=== PATIENT | male | born 1950 | race Caucasian/White ===

== ENCOUNTER 2021-08-11 17:55 | Inpatient (IN) | payer MEDICARE, MEDICAID ==
[~2021-08-11] VITALS: Ht 170.2 cm; Wt 75.1 kg
[~2021-08-11 17:55] MED LIST: ADV50250 INH; ALBU18HF2 INH; ALBU90AE IN; COR3.125T PO; FENO160T37 PO; LISI40TA13 PO; NICO-731 TD; SPIR25TA PO
[2021-08-11 18:44] LABS: EOSINOPHILS % (AUTO) 0.1 % (0-6); HEMOGLOBIN 12.6 g/dl (14.0-17.9)
[2021-08-11 18:47] LABS: BASOPHILS % (AUTO) 0.3 % (0-1); HEMATOCRIT 37.9 % (42.0-52.0); LYMPHOCYTES # (AUTO) 0.8 X10'3 (1.1-4.8); LYMPHOCYTES % (AUTO) 8.1 % (21-51); MEAN CORPUSCULAR HEMOGLOBIN 32.1 PG (27.0-31.0); MEAN CORPUSCULAR HGB CONC 33.2 g/dL (33.0-36.5); MEAN CORPUSCULAR VOLUME 96.7 FL (78-98); MEAN PLATELET VOLUME 9.9 FL (7.4-10.4); MONOCYTES # (AUTO) 0.6 X10'3 (0-0.9); MONOCYTES % (AUTO) 6.3 % (2-12); NEUTROPHILS % (AUTO) 85.2 % (42-75); PLATELET COUNT 96 X10'3 (140-440); RED BLOOD COUNT 3.92 X10'6 (4.70-6.10); RED CELL DISTRIBUTION WIDTH 14.4 % (11.5-14.5); WHITE BLOOD COUNT 9.4 X10'3 (4.5-11.0)
[2021-08-11 18:54] LABS: ALANINE AMINOTRANSFERASE 518 U/L (12-78); ALBUMIN 2.6 G/DL (3.4-5.0); ALBUMIN/GLOBULIN RATIO 0.6 (1.1-1.5); ALKALINE PHOSPHATASE 163 IU/L (46-116); ANION GAP 13 (8-16); ASPARTATE AMINO TRANSFERASE 429 U/L (10-37); BILIRUBIN,TOTAL 1.1 MG/DL (0.1-1.0); BLOOD UREA NITROGEN 52 MG/DL (7-18); C-REACTIVE PROTEIN 11.73 MG/DL (0.0-0.5); CALCIUM 7.9 MG/DL (8.5-10.1); CHLORIDE 108 MMOL/L (99-107); CREATININE 1.21 MG/DL (0.60-1.10); D-DIMER 18.53 MG/L FEU (0-0.50); GLUCOSE 104 MG/DL (70-104); MAGNESIUM 1.9 MG/DL (1.5-2.4); POTASSIUM 4.4 MMOL/L (3.5-5.1); SODIUM 145 MMOL/L (135-145); TOTAL CARBON DIOXIDE 24.2 MMOL/L (24-32); TOTAL PROTEIN 7.3 G/DL (6.4-8.2); eGFR 59 ML/MIN
[2021-08-11] MEDS ORDERED: normal saline 1000ml 1,000 ML IV ONE (20:55)
[2021-08-11] MEDS ORDERED: morphine 2 MG/ML inj. syringe IV PRN ×2 (21:40)
[2021-08-11] MEDS ORDERED: mag hydrox/Alum hydrox/simeth 30ml oral suspension PO PRN (21:40)
[2021-08-11] MEDS ORDERED: ondansetron/PF 4mg/2ml inj IV PRN (21:40)
[2021-08-11] MEDS ORDERED: acetaminophen 325mg tablet PO PRN (21:40)
[2021-08-11] MEDS ORDERED: furosemide 10 MG/1 ML 10ml inj IV ONE (21:45)
--- NOTE | 2021-08-11 22:12 | NUR ---
RT NOTIFIED TO TRY PT ON HF NC. PT TOLERATING 10-11/L NRB WELL.
--- NOTE | 2021-08-11 23:17 | NUR ---
Placed on 12 LPM Salter high flow cannula. Unable to get SpO2 as Hands are cold. Reccommend nasal/ear probe and adjust flow prn. No apparent distress
--- NOTE | 2021-08-12 00:58 | NUR ---
PT WAS PLACED ON HF AND IS MOUTH BREATHING NOW; OXYGENATION HAS DECREASED DUE TO MOUTH BREATHING WHEN SLEEPING; PT STILL AT 90% ON HFNC.
[2021-08-12 02:41] LABS: NUCLEATED RED BLOOD CELLS 2 /100WBC (0-0); PLATELET ESTIMATE DECREASED; TOTAL CELLS COUNTED 100
[2021-08-12 02:46] LABS: LARGE PLATELETS FEW; POLYCHROMASIA FEW
[2021-08-12 04:45] LABS: HEMATOCRIT 39.2 % (42.0-52.0); HEMOGLOBIN 12.8 g/dl (14.0-17.9); LYMPHOCYTES # (AUTO) 0.7 X10'3 (1.1-4.8); MEAN CORPUSCULAR HGB CONC 32.7 g/dL (33.0-36.5); WHITE BLOOD COUNT 10.9 X10'3 (4.5-11.0)
[2021-08-12 04:46] LABS: BASOPHILS % (AUTO) 0.2 % (0-1); EOSINOPHILS # (AUTO) 0.1 X10'3 (0-0.9); EOSINOPHILS % (AUTO) 0.7 % (0-6); LYMPHOCYTES % (AUTO) 6.5 % (21-51); MEAN CORPUSCULAR HEMOGLOBIN 32.1 PG (27.0-31.0); MEAN CORPUSCULAR VOLUME 98.1 FL (78-98); MEAN PLATELET VOLUME 10.1 FL (7.4-10.4); MONOCYTES # (AUTO) 0.5 X10'3 (0-0.9); MONOCYTES % (AUTO) 4.3 % (2-12); NEUTROPHILS # (AUTO) 9.6 X10'3 (1.8-7.7); NEUTROPHILS % (AUTO) 88.3 % (42-75); PLATELET COUNT 99 X10'3 (140-440); RED CELL DISTRIBUTION WIDTH 14.5 % (11.5-14.5)
[2021-08-12 04:47] LABS: ALANINE AMINOTRANSFERASE 397 U/L (12-78); ALBUMIN 2.4 G/DL (3.4-5.0); ALBUMIN/GLOBULIN RATIO 0.5 (1.1-1.5); ALKALINE PHOSPHATASE 183 IU/L (46-116); ANION GAP 12 (8-16); ASPARTATE AMINO TRANSFERASE 238 U/L (10-37); BLOOD UREA NITROGEN 45 MG/DL (7-18); BUN/CREATININE RATIO 38.8 (5.4-32.0); CALCIUM 7.6 MG/DL (8.5-10.1); CHLORIDE 110 MMOL/L (99-107); CREATININE 1.16 MG/DL (0.60-1.10); POTASSIUM 3.7 MMOL/L (3.5-5.1); SODIUM 147 MMOL/L (135-145); TOTAL CARBON DIOXIDE 25.4 MMOL/L (24-32); TOTAL PROTEIN 6.8 G/DL (6.4-8.2); eGFR 62 ML/MIN
[2021-08-12 04:50] LABS: GLUCOSE 99 MG/DL (70-104)
--- NOTE | 2021-08-12 07:44 | NUR ---
PT OBSERVED TO BE AT 85% WHILE ON THE HIGH FLOW AND IS AWAKE/TALKING WITH STAFF. INCREASED HIGH FLOW TO 15 AND O2 IMPROVED TO 87%. SWITCHED PT TO NONREBREATHER AT 12L AND IS NOW 93%
[2021-08-12] MEDS ORDERED: dexamethasone inj 8 MG in normal saline 50ml IV soln 50 ML IV SCH (08:00)
[2021-08-12] MEDS ORDERED: dexamethasone sod phosphate 10mg/ml inj IV SCH (08:00)
[2021-08-12 08:20] LABS: TOTAL CELLS COUNTED 100
[2021-08-12 08:22] LABS: PLATELET ESTIMATE DECREASED
[2021-08-12 08:23] LABS: POLYCHROMASIA 1+
[2021-08-12 08:24] LABS: ELLIPTOCYTES FEW
--- NOTE | 2021-08-12 08:59 | NUR ---
CALLED DR CELIS REGARDING MULTIPLE DECADRON ORDERS. TOLD TO CANCEL THE BAG REPLACEMENT AND ONLY DO THE PUSH BID.
[2021-08-12] MEDS: enoxaparin 40mg/0.4ml syringe SUBCUT SCH (09:11)
[2021-08-12] MEDS: docusate sod 100mg capsule PO SCH ×2 (09:12→20:00)
[2021-08-12] MEDS ORDERED: potassium Cl 20 mEq SR tablet PO PRN ×2 (09:15)
[2021-08-12] MEDS ORDERED: potassium Cl 40MEQ/1/2NS 520ml 520 ML IV PRN (09:15)
[2021-08-12] MEDS ORDERED: magnesium Cl slow-release 64mg tablet PO PRN (09:15)
[2021-08-12] MEDS ORDERED: magnesium 4gm in 100ml NS 100 ML IV PRN (09:15)
[2021-08-12] MEDS ORDERED: CARV3.122 PO (14:50)
[2021-08-12 16:00] VITALS: BP 138/78
--- NOTE | 2021-08-12 18:39 | NUR ---
Problems reprioritized. Patient report given, questions answered & plan of care reviewed with Nevaeh CEE.
[2021-08-12] MEDS: ADVAIR IH SCH (20:00)
[2021-08-12] MEDS: K and/or MAG REPLACEMENT MC SCH (20:00)
[2021-08-12 20:59] VITALS: BP 137/83
[2021-08-12] MEDS: carVEDilol 3.125mg tablet PO SCH (21:01)
[2021-08-12] MEDS ORDERED: dexamethasone 4mg/ml inj IV ONE (21:20)
[2021-08-12 23:09] VITALS: BP 129/73
[2021-08-13 03:23] VITALS: BP 112/61
[2021-08-13 06:00] VITALS: BP 106/60
--- NOTE | 2021-08-13 06:46 | NUR ---
Problems reprioritized. Patient report given, questions answered & plan of care reviewed with JAYE Lee.
--- NOTE | 2021-08-13 07:02 | NUR ---
Patient in room PCU 3008. I have received report from Carla CEE and had the opportunity to ask questions and assume patient care.
[2021-08-13 07:29] LABS: BASOPHILS % (AUTO) 0 % (0-1); EOSINOPHILS % (AUTO) 0 % (0-6); HEMATOCRIT 39.1 % (42.0-52.0); HEMOGLOBIN 12.8 g/dl (14.0-17.9); LYMPHOCYTES # (AUTO) 0.5 X10'3 (1.1-4.8); LYMPHOCYTES % (AUTO) 6.3 % (21-51); MEAN CORPUSCULAR HEMOGLOBIN 32.2 PG (27.0-31.0); MEAN CORPUSCULAR HGB CONC 32.7 g/dL (33.0-36.5); MEAN CORPUSCULAR VOLUME 98.5 FL (78-98); MONOCYTES # (AUTO) 0.2 X10'3 (0-0.9); MONOCYTES % (AUTO) 2.5 % (2-12); NEUTROPHILS % (AUTO) 91.2 % (42-75); PLATELET COUNT 110 X10'3 (140-440); RED BLOOD COUNT 3.97 X10'6 (4.70-6.10); RED CELL DISTRIBUTION WIDTH 14.9 % (11.5-14.5); WHITE BLOOD COUNT 7.7 X10'3 (4.5-11.0)
[2021-08-13] MEDS: lisinopril 20mg tablet PO SCH (08:00)
[2021-08-13] MEDS: ADVAIR IH SCH ×2 (08:00→20:00)
[2021-08-13] MEDS: K and/or MAG REPLACEMENT MC SCH ×2 (08:00→20:00)
[2021-08-13 08:04] LABS: D-DIMER > 35.20 MG/L FEU (0-0.50)
[2021-08-13] MEDS ORDERED: FLU VACC QS2021-22(6MOS UP)/PF 60 MCG/0.5 ML SYRINGE IM ONE (09:00)
[2021-08-13 09:03] LABS: ALANINE AMINOTRANSFERASE 260 U/L (12-78); ALBUMIN 2.4 G/DL (3.4-5.0); ALBUMIN/GLOBULIN RATIO 0.5 (1.1-1.5); ALKALINE PHOSPHATASE 124 IU/L (46-116); ANION GAP 11 (8-16); ASPARTATE AMINO TRANSFERASE 78 U/L (10-37); BILIRUBIN,TOTAL 0.8 MG/DL (0.1-1.0); BLOOD UREA NITROGEN 39 MG/DL (7-18); BUN/CREATININE RATIO 48.8 (5.4-32.0); C-REACTIVE PROTEIN 5.33 MG/DL (0.0-0.5); CALCIUM 8.1 MG/DL (8.5-10.1); CHLORIDE 111 MMOL/L (99-107); GLUCOSE 157 MG/DL (70-104); LACTATE DEHYDROGENASE 430 U/L (85-227); MAGNESIUM 1.8 MG/DL (1.5-2.4); PHOSPHORUS 3.7 MG/DL (2.3-4.5); POTASSIUM 4.6 MMOL/L (3.5-5.1); SODIUM 148 MMOL/L (135-145); TOTAL CARBON DIOXIDE 26.4 MMOL/L (24-32); TOTAL PROTEIN 6.8 G/DL (6.4-8.2); eGFR > 90 ML/MIN
[2021-08-13] MEDS: dexamethasone 4mg/ml inj IV SCH ×2 (09:21→19:19)
[2021-08-13] MEDS: docusate sod 100mg capsule PO SCH ×2 (09:22→20:00)
[2021-08-13] MEDS: fenofibrate 145mg tablet PO SCH (09:22)
[2021-08-13] MEDS: carVEDilol 3.125mg tablet PO SCH ×3 (09:22→20:00)
[2021-08-13] MEDS: enoxaparin 40mg/0.4ml syringe SUBCUT SCH (09:24)
--- NOTE | 2021-08-13 10:01 | NUR ---
Paged to respiratory- Please change pt to NC, rebreather mask continues to fall and pt drops to 83-86%. fine wheezes noted. Thank you Rosa NGUYENU
[2021-08-13 10:03] LABS: HIV ANTIBODY 1&2 RAPID NON-REACTIVE (Neg)
[2021-08-13] MEDS: ALBUTEROL INHALER 1 PUFF/90 MCG INHALER IH PRN (10:39)
[2021-08-13 11:00] VITALS: BP 114/57
--- NOTE | 2021-08-13 15:00 | NUR ---
Pt doing very well with the HF NC at 15L. He is able to eat, speak and drink with minimal SOB. Stats at 94%. Finger oximeter removed. Using the vital machine oximeter. Pt stable.
--- NOTE | 2021-08-13 18:18 | NUR ---
Problems reprioritized. Patient report given, questions answered & plan of care reviewed with Liss CEE.
[2021-08-13] MEDS: acetaminophen 325mg tablet PO PRN (19:18)
[2021-08-13] MEDS: enoxaparin 80mg/0.8ml syringe SUBCUT SCH (19:19)
[2021-08-13 19:30] VITALS: BP 114/64
[2021-08-13 21:30] VITALS: BP 108/56
[2021-08-13 22:00] VITALS: BP 115/64
--- NOTE | 2021-08-13 22:10 | NUR ---
pt switched from NC 15L high flow to NRB b/c he got SOB. educated on adding NRB on top of NC instead of removing - sats 96% on NRB. replaced NC and sats remained 95%. pt requested lights off. call light in reach. pt has pulse ox at bedside he can put on as needed.
[2021-08-14 03:00] VITALS: BP 106/75
--- NOTE | 2021-08-14 03:27 | NUR ---
pt states he only wants ice chips, no water. he will drink the water as it melts.
--- NOTE | 2021-08-14 05:49 | NUR ---
reported to days. noted pt turning on side to help oxygenation. need to requests ETOH protocol and ensure
[2021-08-14 06:24] LABS: BASOPHILS % (AUTO) 0.4 % (0-1); EOSINOPHILS % (AUTO) 0 % (0-6); HEMATOCRIT 37.4 % (42.0-52.0); HEMOGLOBIN 12.5 g/dl (14.0-17.9); LYMPHOCYTES # (AUTO) 0.9 X10'3 (1.1-4.8); LYMPHOCYTES % (AUTO) 9.3 % (21-51); MEAN CORPUSCULAR HEMOGLOBIN 32.8 PG (27.0-31.0); MEAN CORPUSCULAR HGB CONC 33.5 g/dL (33.0-36.5); MEAN CORPUSCULAR VOLUME 97.9 FL (78-98); MEAN PLATELET VOLUME 10.3 FL (7.4-10.4); MONOCYTES # (AUTO) 0.5 X10'3 (0-0.9); MONOCYTES % (AUTO) 5.5 % (2-12); NEUTROPHILS # (AUTO) 8.2 X10'3 (1.8-7.7); NEUTROPHILS % (AUTO) 84.8 % (42-75); PLATELET COUNT 99 X10'3 (140-440); RED BLOOD COUNT 3.82 X10'6 (4.70-6.10); RED CELL DISTRIBUTION WIDTH 14.8 % (11.5-14.5); WHITE BLOOD COUNT 9.7 X10'3 (4.5-11.0)
[2021-08-14 07:02] LABS: ALANINE AMINOTRANSFERASE 165 U/L (12-78); ALBUMIN 2.3 G/DL (3.4-5.0); ALBUMIN/GLOBULIN RATIO 0.6 (1.1-1.5); ALKALINE PHOSPHATASE 104 IU/L (46-116); ANION GAP 3 (8-16); ASPARTATE AMINO TRANSFERASE 35 U/L (10-37); BILIRUBIN,TOTAL 0.7 MG/DL (0.1-1.0); BLOOD UREA NITROGEN 41 MG/DL (7-18); BUN/CREATININE RATIO 53.2 (5.4-32.0); C-REACTIVE PROTEIN 2.42 MG/DL (0.0-0.5); CALCIUM 8.4 MG/DL (8.5-10.1); CHLORIDE 107 MMOL/L (99-107); CREATININE 0.77 MG/DL (0.60-1.10); GLUCOSE 160 MG/DL (70-104); LACTATE DEHYDROGENASE 330 U/L (85-227); MAGNESIUM 1.8 MG/DL (1.5-2.4); PHOSPHORUS 3.1 MG/DL (2.3-4.5); SODIUM 140 MMOL/L (135-145); TOTAL CARBON DIOXIDE 29.6 MMOL/L (24-32); TOTAL PROTEIN 6.2 G/DL (6.4-8.2); eGFR > 90 ML/MIN
[2021-08-14 07:05] VITALS: BP 126/68
[2021-08-14] MEDS: ALBUTEROL INHALER 1 PUFF/90 MCG INHALER IH PRN (07:58)
[2021-08-14] MEDS: carVEDilol 3.125mg tablet PO SCH ×2 (08:00→20:00)
[2021-08-14] MEDS: ADVAIR IH SCH (08:00)
[2021-08-14] MEDS: lisinopril 20mg tablet PO SCH (08:00)
[2021-08-14] MEDS: K and/or MAG REPLACEMENT MC SCH ×2 (08:00→20:00)
--- NOTE | 2021-08-14 10:47 | NUR ---
Concern for low plt 99, lovanox 80mg BID ordered. Per Dr Andres villanueva to give.
[2021-08-14] MEDS: docusate sod 100mg capsule PO SCH ×2 (10:50→21:17)
[2021-08-14] MEDS: dexamethasone 4mg/ml inj IV SCH ×2 (10:51→21:18)
[2021-08-14] MEDS: fenofibrate 145mg tablet PO SCH (10:51)
[2021-08-14] MEDS: enoxaparin 80mg/0.8ml syringe SUBCUT SCH (10:51)
[2021-08-14 10:58] VITALS: BP 99/60
[2021-08-14 11:18] LABS: HBSAG SCREEN Negative (Negative); HEP A AB, IGM Negative (Negative); HEPATITIS C ANTIBODY 0.1 s/co ratio (0.0-0.9)
--- NOTE | 2021-08-14 12:53 | NUR ---
PAGER ID: [phone] MESSAGE: Evelin [phone] wally Darius Garcia- can we switch his home med Advair to budesonide/albuterol nebs? Lungs sounds very coarse, wheezy. will also work on pulmonary toilet w IS, flutter.
--- NOTE | 2021-08-14 13:32 | NUR ---
instructed pt on use of IS. He is weak and unable to pull up to more than 1000. Encouraged deep breathe/cough. Has weak cough. Administered albuterol with spacer. I have paged MD Garcia re changing the Advair, which is unavailable home med, to budesonide/albuterol nebs (pharmacological equivalent per pharmacy). the pt is no longer in isolation and is now able to receive neb treatment Addendum: 08/14/21 at 1357 by Lluvia Torres RN spoke to Dr Garcia and he has adjusted the meds to address the low platelets/anticoagulation issue and also ordered scheduled RT and duonebs.
[2021-08-14] MEDS: ipratropium/albuterol 3ml nebule NEB SCH ×3 (15:00→23:21)
[2021-08-14] MEDS: ipratropium/albuterol 3ml nebule NEB PRN (17:49)
[2021-08-14 18:00] VITALS: BP 126/68
[2021-08-14] MEDS: apixaban 5mg tablet PO SCH (21:17)
[2021-08-14] MEDS: acetaminophen 325mg tablet PO PRN (21:18)
[2021-08-14 22:00] VITALS: BP 113/51
[2021-08-15 02:00] VITALS: BP 119/56
[2021-08-15] MEDS: ipratropium/albuterol 3ml nebule NEB SCH ×6 (03:23→23:18)
--- NOTE | 2021-08-15 05:50 | NUR ---
reported to days. encouraged pt to lay on side, continue coughing and using RT tx.
[2021-08-15 06:00] VITALS: BP 138/90
--- NOTE | 2021-08-15 06:15 | NUR ---
Patient in room PCU 3013. I have received report from Randy CEE and had the opportunity to ask questions and assume patient care.
[2021-08-15 06:32] LABS: BASOPHILS % (AUTO) 0 % (0-1); EOSINOPHILS % (AUTO) 0 % (0-6); HEMATOCRIT 37.9 % (42.0-52.0); HEMOGLOBIN 12.8 g/dl (14.0-17.9); LYMPHOCYTES # (AUTO) 0.7 X10'3 (1.1-4.8); LYMPHOCYTES % (AUTO) 6.3 % (21-51); MEAN CORPUSCULAR HEMOGLOBIN 32.6 PG (27.0-31.0); MEAN CORPUSCULAR HGB CONC 33.9 g/dL (33.0-36.5); MEAN CORPUSCULAR VOLUME 96.2 FL (78-98); MEAN PLATELET VOLUME 9.8 FL (7.4-10.4); MONOCYTES # (AUTO) 0.5 X10'3 (0-0.9); MONOCYTES % (AUTO) 4.6 % (2-12); NEUTROPHILS # (AUTO) 9.4 X10'3 (1.8-7.7); NEUTROPHILS % (AUTO) 89.1 % (42-75); PLATELET COUNT 106 X10'3 (140-440); RED BLOOD COUNT 3.94 X10'6 (4.70-6.10); RED CELL DISTRIBUTION WIDTH 14.2 % (11.5-14.5); WHITE BLOOD COUNT 10.6 X10'3 (4.5-11.0)
[2021-08-15 06:47] LABS: D-DIMER 6.34 MG/L FEU (0-0.50)
[2021-08-15 07:02] LABS: ALANINE AMINOTRANSFERASE 118 U/L (12-78); ALBUMIN 2.3 G/DL (3.4-5.0); ALBUMIN/GLOBULIN RATIO 0.6 (1.1-1.5); ALKALINE PHOSPHATASE 95 IU/L (46-116); ANION GAP 1 (8-16); ASPARTATE AMINO TRANSFERASE 27 U/L (10-37); BILIRUBIN,TOTAL 0.7 MG/DL (0.1-1.0); BLOOD UREA NITROGEN 37 MG/DL (7-18); BUN/CREATININE RATIO 48.1 (5.4-32.0); CALCIUM 8.4 MG/DL (8.5-10.1); CHLORIDE 105 MMOL/L (99-107); CREATININE 0.77 MG/DL (0.60-1.10); GLUCOSE 129 MG/DL (70-104); SODIUM 138 MMOL/L (135-145); TOTAL CARBON DIOXIDE 31.8 MMOL/L (24-32); TOTAL PROTEIN 6.1 G/DL (6.4-8.2); eGFR > 90 ML/MIN
[2021-08-15 07:05] LABS: C-REACTIVE PROTEIN 1.17 MG/DL (0.0-0.5); LACTATE DEHYDROGENASE 321 U/L (85-227); MAGNESIUM 1.6 MG/DL (1.5-2.4); PHOSPHORUS 2.7 MG/DL (2.3-4.5)
[2021-08-15] MEDS: lactose-reduced food (Ensure High Protein) 237ml bottle PO SCH ×3 (08:00→18:00)
[2021-08-15] MEDS: carVEDilol 3.125mg tablet PO SCH (08:00)
[2021-08-15] MEDS: K and/or MAG REPLACEMENT MC SCH ×2 (08:00→20:00)
[2021-08-15] MEDS: lisinopril 20mg tablet PO SCH (08:52)
[2021-08-15] MEDS: docusate sod 100mg capsule PO SCH ×2 (08:53→21:13)
[2021-08-15] MEDS: fenofibrate 145mg tablet PO SCH (08:53)
[2021-08-15] MEDS: dexamethasone 4mg/ml inj IV SCH ×2 (08:54→21:13)
[2021-08-15] MEDS: apixaban 5mg tablet PO SCH ×2 (08:54→21:14)
--- NOTE | 2021-08-15 10:34 | NUR ---
Spoke with Dr. Garcia concerning Pt's HR in the 50's and morning dose of Coreg 3.125. Orders received from Dr. Garcia to hold Coreg 3.125 dose for 3 days and then restart on 06/18/21 at 0800
--- NOTE | 2021-08-15 14:55 | NUR ---
pt refused 1500 svn stating that he wants to sleep. pt. appears comfortable and without sob
[2021-08-15 15:00] VITALS: BP 134/69
[2021-08-15 18:00] VITALS: BP 138/69
--- NOTE | 2021-08-15 18:10 | NUR ---
Problems reprioritized. Patient report given, questions answered & plan of care reviewed with Marleni CEE.
[2021-08-15 22:00] VITALS: BP 124/80
[2021-08-16 02:00] VITALS: BP 132/81
[2021-08-16] MEDS: ipratropium/albuterol 3ml nebule NEB SCH ×6 (03:18→23:01)
[2021-08-16 06:04] LABS: D-DIMER 3.94 MG/L FEU (0-0.50)
[2021-08-16 06:06] LABS: ALANINE AMINOTRANSFERASE 89 U/L (12-78); ALBUMIN 2.4 G/DL (3.4-5.0); ALBUMIN/GLOBULIN RATIO 0.7 (1.1-1.5); ALKALINE PHOSPHATASE 86 IU/L (46-116); ANION GAP 3 (8-16); ASPARTATE AMINO TRANSFERASE 27 U/L (10-37); BILIRUBIN,TOTAL 0.7 MG/DL (0.1-1.0); BLOOD UREA NITROGEN 41 MG/DL (7-18); BUN/CREATININE RATIO 64.1 (5.4-32.0); C-REACTIVE PROTEIN 0.71 MG/DL (0.0-0.5); CALCIUM 8.4 MG/DL (8.5-10.1); CHLORIDE 102 MMOL/L (99-107); CREATININE 0.64 MG/DL (0.60-1.10); GLUCOSE 122 MG/DL (70-104); LACTATE DEHYDROGENASE 290 U/L (85-227); MAGNESIUM 1.6 MG/DL (1.5-2.4); POTASSIUM 5.1 MMOL/L (3.5-5.1); SODIUM 139 MMOL/L (135-145); TOTAL CARBON DIOXIDE 33.9 MMOL/L (24-32); eGFR > 90 ML/MIN
--- NOTE | 2021-08-16 06:10 | NUR ---
Patient in room PCU 3013. I have received report from Marleni CEE and had the opportunity to ask questions and assume patient care.
[2021-08-16 06:16] LABS: BASOPHILS % (AUTO) 0.1 % (0-1); EOSINOPHILS % (AUTO) 0 % (0-6); HEMATOCRIT 40.6 % (42.0-52.0); HEMOGLOBIN 13.4 g/dl (14.0-17.9); LYMPHOCYTES # (AUTO) 0.7 X10'3 (1.1-4.8); MEAN CORPUSCULAR HGB CONC 33.1 g/dL (33.0-36.5); MEAN CORPUSCULAR VOLUME 96.8 FL (78-98); MEAN PLATELET VOLUME 10.5 FL (7.4-10.4); MONOCYTES # (AUTO) 0.7 X10'3 (0-0.9); MONOCYTES % (AUTO) 5.1 % (2-12); NEUTROPHILS # (AUTO) 12.2 X10'3 (1.8-7.7); NEUTROPHILS % (AUTO) 89.8 % (42-75); PLATELET COUNT 117 X10'3 (140-440); RED CELL DISTRIBUTION WIDTH 14.8 % (11.5-14.5); WHITE BLOOD COUNT 13.6 X10'3 (4.5-11.0)
[2021-08-16 07:00] VITALS: BP 168/63
[2021-08-16] MEDS ORDERED: FLU VACC QS2021-22(6MOS UP)/PF 60 MCG/0.5 ML SYRINGE IM ONE (08:00)
[2021-08-16] MEDS: K and/or MAG REPLACEMENT MC SCH ×2 (08:00→19:11)
[2021-08-16] MEDS: lactose-reduced food (Ensure High Protein) 237ml bottle PO SCH ×3 (08:00→18:00)
[2021-08-16] MEDS: docusate sod 100mg capsule PO SCH ×2 (09:12→20:32)
[2021-08-16] MEDS: lisinopril 20mg tablet PO SCH (09:12)
[2021-08-16] MEDS: fenofibrate 145mg tablet PO SCH (09:12)
[2021-08-16] MEDS: dexamethasone 4mg/ml inj IV SCH ×2 (09:13→20:29)
[2021-08-16] MEDS: apixaban 5mg tablet PO SCH ×2 (09:13→20:32)
--- NOTE | 2021-08-16 10:51 | NUR ---
Initial: Pt diagnosed with COVID pneumonia around 07/23 admit for acute hypoxemic respiratory failure. Currently on a heart healthy diet with average 50-75% PO intake. Noted pt appropriately started on Ensure High Protein TID 08/15 with average 58% PO intake of ONS. Combined PO intake of meals and ONS is meeting roughly 78-100% estimated energy needs and 90-100% estimated protein needs. LBM 08/12, receiving routine bowel care. No additional nutrition intervention implemented at this time. Will continue to follow. Recommendations: 1) Advance to regular diet 2) Continue Ensure High Protein TIDWM 3) Routine bowel care 4) Daily scaled weights per rx Addendum: 08/16/21 at [address] Amended: Links added.
[2021-08-16 11:00] VITALS: BP 124/71
[2021-08-16 11:43] LABS: ANISOCYTOSIS 1+; LARGE PLATELETS FEW; PLATELET ESTIMATE DECREASED
[2021-08-16] MEDS: magnesium hydroxide 30ml (MOM) UD suspension PO PRN (12:05)
[2021-08-16 15:00] VITALS: BP 127/67
[2021-08-16 18:00] VITALS: BP 114/60
--- NOTE | 2021-08-16 18:05 | NUR ---
Problems reprioritized. Patient report given, questions answered & plan of care reviewed with Marleni CEE.
[2021-08-16 22:00] VITALS: BP 123/71
[2021-08-17 02:00] VITALS: BP 109/60
[2021-08-17] MEDS: ipratropium/albuterol 3ml nebule NEB SCH ×6 (03:07→23:10)
[2021-08-17 06:14] LABS: BASOPHILS % (AUTO) 0 % (0-1); EOSINOPHILS % (AUTO) 0.1 % (0-6); HEMATOCRIT 35.9 % (42.0-52.0); LYMPHOCYTES # (AUTO) 0.7 X10'3 (1.1-4.8); MEAN CORPUSCULAR HEMOGLOBIN 32.2 PG (27.0-31.0); MEAN CORPUSCULAR HGB CONC 33.5 g/dL (33.0-36.5); MEAN PLATELET VOLUME 10.6 FL (7.4-10.4); MONOCYTES # (AUTO) 0.8 X10'3 (0-0.9); MONOCYTES % (AUTO) 7.2 % (2-12); NEUTROPHILS # (AUTO) 9.7 X10'3 (1.8-7.7); NEUTROPHILS % (AUTO) 86.7 % (42-75); PLATELET COUNT 104 X10'3 (140-440); RED BLOOD COUNT 3.74 X10'6 (4.70-6.10); RED CELL DISTRIBUTION WIDTH 14.5 % (11.5-14.5); WHITE BLOOD COUNT 11.2 X10'3 (4.5-11.0)
[2021-08-17 06:18] LABS: D-DIMER 3.76 MG/L FEU (0-0.50)
[2021-08-17 06:37] LABS: ALANINE AMINOTRANSFERASE 61 U/L (12-78); ALBUMIN 2.3 G/DL (3.4-5.0); ALBUMIN/GLOBULIN RATIO 0.7 (1.1-1.5); ALKALINE PHOSPHATASE 75 IU/L (46-116); ANION GAP 0 (8-16); ASPARTATE AMINO TRANSFERASE 26 U/L (10-37); BILIRUBIN,TOTAL 0.6 MG/DL (0.1-1.0); BLOOD UREA NITROGEN 44 MG/DL (7-18); BUN/CREATININE RATIO 69.8 (5.4-32.0); C-REACTIVE PROTEIN 0.62 MG/DL (0.0-0.5); CALCIUM 8.3 MG/DL (8.5-10.1); CHLORIDE 101 MMOL/L (99-107); CREATININE 0.63 MG/DL (0.60-1.10); GLUCOSE 147 MG/DL (70-104); LACTATE DEHYDROGENASE 245 U/L (85-227); MAGNESIUM 1.9 MG/DL (1.5-2.4); PHOSPHORUS 3.2 MG/DL (2.3-4.5); SODIUM 137 MMOL/L (135-145); TOTAL CARBON DIOXIDE 35.9 MMOL/L (24-32); TOTAL PROTEIN 5.6 G/DL (6.4-8.2); eGFR > 90 ML/MIN
[2021-08-17 07:00] VITALS: BP 96/52
[2021-08-17 07:18] LABS: LARGE PLATELETS FEW; PLATELET ESTIMATE DECREASED
[2021-08-17] MEDS: K and/or MAG REPLACEMENT MC SCH ×2 (07:59→20:00)
[2021-08-17] MEDS: lactose-reduced food (Ensure High Protein) 237ml bottle PO SCH ×3 (08:00→18:00)
[2021-08-17] MEDS: lisinopril 20mg tablet PO SCH (08:00)
[2021-08-17] MEDS: fenofibrate 145mg tablet PO SCH (08:49)
[2021-08-17] MEDS: docusate sod 100mg capsule PO SCH ×2 (08:50→21:06)
[2021-08-17] MEDS: apixaban 5mg tablet PO SCH ×2 (08:50→21:07)
[2021-08-17] MEDS: dexamethasone 4mg/ml inj IV SCH ×2 (08:50→21:07)
--- NOTE | 2021-08-17 09:00 | NUR ---
PAGER ID: [phone] MESSAGE: REN ON [email or web address], [phone] NOT DOING WELL, O2 DEMAND INCREASING, CAN I PLACE ORDER FOR STAT CXRAY AND ABG?
[2021-08-17] MEDS: HYDROcodone/acetaminophen 5mg/325mg tablet PO PRN ×2 (09:24→17:42)
[2021-08-17 11:00] VITALS: BP 108/57
[2021-08-17 11:12] LABS: ABG BASE EXCESS 9.4 mmol/L (-2.0-2.0); ABG HCO3 34.6 mmol/L (22.0-26.0); ABG OXYGEN SATURATION 93.6 % (94-97); ABG PCO2 (T) 49.2 mmHg (35.0-48.0); ABG PO2 (T) 67.4 mmHg (75.0-100.0); ALLEN'S TEST POSITIVE; FCOHb 0.6 % (0.0-3.9); FLOW 15 L/min; FMetHb 0.3 % (0.0-1.5); FO2Hb 92.8 % (94-97)
[2021-08-17 11:30] VITALS: BP 108/57
[2021-08-17 18:00] VITALS: BP 97/53
[2021-08-17 23:00] VITALS: BP 111/54
[2021-08-18] MEDS: ipratropium/albuterol 3ml nebule NEB SCH ×6 (02:56→23:21)
[2021-08-18 06:00] VITALS: BP 102/58
[2021-08-18 06:31] LABS: BASOPHILS % (AUTO) 0.2 % (0-1); EOSINOPHILS % (AUTO) 0.1 % (0-6); HEMATOCRIT 34.3 % (42.0-52.0); HEMOGLOBIN 11.3 g/dl (14.0-17.9); LYMPHOCYTES # (AUTO) 0.7 X10'3 (1.1-4.8); MEAN CORPUSCULAR HEMOGLOBIN 32.4 PG (27.0-31.0); MEAN CORPUSCULAR HGB CONC 32.9 g/dL (33.0-36.5); MEAN CORPUSCULAR VOLUME 98.6 FL (78-98); MEAN PLATELET VOLUME 10.7 FL (7.4-10.4); MONOCYTES # (AUTO) 0.7 X10'3 (0-0.9); MONOCYTES % (AUTO) 4.7 % (2-12); NEUTROPHILS # (AUTO) 13.3 X10'3 (1.8-7.7); PLATELET COUNT 115 X10'3 (140-440); RED BLOOD COUNT 3.48 X10'6 (4.70-6.10); RED CELL DISTRIBUTION WIDTH 15.3 % (11.5-14.5); WHITE BLOOD COUNT 14.8 X10'3 (4.5-11.0)
[2021-08-18 07:18] LABS: ALANINE AMINOTRANSFERASE 44 U/L (12-78); ALBUMIN 2.2 G/DL (3.4-5.0); ALBUMIN/GLOBULIN RATIO 0.7 (1.1-1.5); ALKALINE PHOSPHATASE 66 IU/L (46-116); ANION GAP 1 (8-16); ASPARTATE AMINO TRANSFERASE 25 U/L (10-37); BILIRUBIN,TOTAL 0.5 MG/DL (0.1-1.0); BLOOD UREA NITROGEN 56 MG/DL (7-18); BUN/CREATININE RATIO 82.4 (5.4-32.0); CALCIUM 8.4 MG/DL (8.5-10.1); CHLORIDE 99 MMOL/L (99-107); CREATININE 0.68 MG/DL (0.60-1.10); GLUCOSE 116 MG/DL (70-104); POTASSIUM 5.3 MMOL/L (3.5-5.1); SODIUM 134 MMOL/L (135-145); TOTAL CARBON DIOXIDE 33.6 MMOL/L (24-32); TOTAL PROTEIN 5.4 G/DL (6.4-8.2); eGFR > 90 ML/MIN
[2021-08-18] MEDS: lactose-reduced food (Ensure High Protein) 237ml bottle PO SCH ×3 (08:35→18:00)
[2021-08-18] MEDS: dexamethasone 4mg/ml inj IV SCH (08:46)
[2021-08-18] MEDS: apixaban 5mg tablet PO SCH ×2 (08:46→19:57)
[2021-08-18] MEDS: docusate sod 100mg capsule PO SCH ×2 (08:47→19:58)
[2021-08-18] MEDS: carVEDilol 3.125mg tablet PO SCH ×2 (08:47→19:54)
[2021-08-18] MEDS: lisinopril 20mg tablet PO SCH (08:47)
[2021-08-18] MEDS: fenofibrate 145mg tablet PO SCH (08:47)
[2021-08-18] MEDS: K and/or MAG REPLACEMENT MC SCH ×2 (08:51→19:40)
[2021-08-18 11:00] VITALS: BP 100/60
[2021-08-18 15:00] VITALS: BP 99/60
[2021-08-18] MEDS: acetaminophen 325mg tablet PO PRN (15:43)
[2021-08-18 18:00] VITALS: BP 94/41
--- NOTE | 2021-08-18 18:48 | NUR ---
Problems reprioritized. Patient report given, questions answered & plan of care reviewed with Marleni CEE.
--- NOTE | 2021-08-18 18:48 | NUR ---
report received from nurse Roberts. Patient is stable. All safety measures in place. Will continue monitor.
--- NOTE | 2021-08-18 19:55 | NUR ---
coreg held bp 73/31. sat 96 on High flow
[2021-08-18] MEDS: HYDROcodone/acetaminophen 5mg/325mg tablet PO PRN (19:57)
[2021-08-18] MEDS ORDERED: dexamethasone 4mg/ml inj IV SCH (20:00)
--- NOTE | 2021-08-18 20:03 | NUR ---
patient resting in bed watching tv. reports neck pain of 5 on a scale of 0-10. Pain med given. encourage pain to reposition. All safety in place. will continue monitor.
[2021-08-18] MEDS: dexamethasone inj 4 MG in normal saline 50ml IV soln 50 ML IV SCH (21:26)
[2021-08-18 22:00] VITALS: BP 91/44
[2021-08-19] VITALS (8 sets, daily range): BP systolic 75–92; BP diastolic 41–60
--- NOTE | 2021-08-19 01:21 | NUR ---
HOSPITALIST PAGED ABOUT PATIENT LOW BP. ORDERS GIVEN: 250 ML BOLUS AND 100ML/HR NS
[2021-08-19] MEDS: normal saline 1000ml 1,000 ML IV SCH ×2 (01:25→11:54)
[2021-08-19] MEDS ORDERED: normal saline 250ml IV soln 250 ML IV ONE (01:25)
[2021-08-19] MEDS: ipratropium/albuterol 3ml nebule NEB SCH ×6 (03:15→22:38)
[2021-08-19 06:14] LABS: BASOPHILS % (AUTO) 0 % (0-1); EOSINOPHILS % (AUTO) 0.1 % (0-6); HEMATOCRIT 32.6 % (42.0-52.0); HEMOGLOBIN 10.6 g/dl (14.0-17.9); LYMPHOCYTES # (AUTO) 0.6 X10'3 (1.1-4.8); LYMPHOCYTES % (AUTO) 4.1 % (21-51); MEAN CORPUSCULAR HEMOGLOBIN 32.2 PG (27.0-31.0); MEAN CORPUSCULAR HGB CONC 32.5 g/dL (33.0-36.5); MONOCYTES # (AUTO) 0.6 X10'3 (0-0.9); MONOCYTES % (AUTO) 4.3 % (2-12); NEUTROPHILS # (AUTO) 13.5 X10'3 (1.8-7.7); NEUTROPHILS % (AUTO) 91.5 % (42-75); PLATELET COUNT 113 X10'3 (140-440); RED BLOOD COUNT 3.29 X10'6 (4.70-6.10); RED CELL DISTRIBUTION WIDTH 15.3 % (11.5-14.5); WHITE BLOOD COUNT 14.8 X10'3 (4.5-11.0)
--- NOTE | 2021-08-19 06:15 | NUR ---
Patient in room PCU 3013. I have received report from Marleni CEE and had the opportunity to ask questions and assume patient care.
[2021-08-19 06:19] LABS: D-DIMER 2.22 MG/L FEU (0-0.50)
[2021-08-19 06:46] LABS: ALANINE AMINOTRANSFERASE 36 U/L (12-78); ALBUMIN/GLOBULIN RATIO 0.6 (1.1-1.5); ALKALINE PHOSPHATASE 62 IU/L (46-116); ANION GAP 0 (8-16); ASPARTATE AMINO TRANSFERASE 21 U/L (10-37); BILIRUBIN,TOTAL 0.4 MG/DL (0.1-1.0); BLOOD UREA NITROGEN 49 MG/DL (7-18); BUN/CREATININE RATIO 76.6 (5.4-32.0); C-REACTIVE PROTEIN 0.25 MG/DL (0.0-0.5); CHLORIDE 101 MMOL/L (99-107); CREATININE 0.64 MG/DL (0.60-1.10); GLUCOSE 113 MG/DL (70-104); LACTATE DEHYDROGENASE 187 U/L (85-227); MAGNESIUM 1.8 MG/DL (1.5-2.4); PHOSPHORUS 3.5 MG/DL (2.3-4.5); POTASSIUM 5.5 MMOL/L (3.5-5.1); SODIUM 136 MMOL/L (135-145); TOTAL CARBON DIOXIDE 34.9 MMOL/L (24-32); TOTAL PROTEIN 5.2 G/DL (6.4-8.2); eGFR > 90 ML/MIN
[2021-08-19 07:37] LABS: PLATELET ESTIMATE DECREASED
[2021-08-19 07:38] LABS: HYPOCHROMASIA 1+; LARGE PLATELETS FEW
[2021-08-19] MEDS: dexamethasone inj 4 MG in normal saline 50ml IV soln 50 ML IV SCH ×2 (07:56→20:15)
[2021-08-19] MEDS: docusate sod 100mg capsule PO SCH ×2 (07:57→20:21)
[2021-08-19] MEDS: fenofibrate 145mg tablet PO SCH (07:57)
[2021-08-19] MEDS: apixaban 5mg tablet PO SCH ×2 (07:57→20:22)
[2021-08-19] MEDS: HYDROcodone/acetaminophen 5mg/325mg tablet PO PRN ×2 (07:58→22:00)
[2021-08-19] MEDS: lactose-reduced food (Ensure High Protein) 237ml bottle PO SCH ×3 (07:58→18:12)
[2021-08-19] MEDS: carVEDilol 3.125mg tablet PO SCH ×2 (07:59→20:00)
[2021-08-19] MEDS: lisinopril 20mg tablet PO SCH (08:00)
[2021-08-19] MEDS: K and/or MAG REPLACEMENT MC SCH ×2 (08:05→20:00)
--- NOTE | 2021-08-19 10:53 | NUR ---
spoke with Dr. Garcia regarding hypotension. I held blood pressure medications. He requested to give a 500 normal saline bolus, change IV Normal saline to 75ml an hour, and continue to hold blood pressure medication today.
[2021-08-19] MEDS: normal saline 500ml IV soln 500 ML IV SCH ×2 (11:22→14:03)
--- NOTE | 2021-08-19 18:09 | NUR ---
Problems reprioritized. Patient report given, questions answered & plan of care reviewed with Marleni CEE.
[2021-08-19] MEDS: magnesium hydroxide 30ml (MOM) UD suspension PO PRN (20:22)
[2021-08-19] MEDS ORDERED: sodium polystyrene sulfonate 15gm/60ml oral suspension PO ONE (23:10)
[2021-08-20] VITALS (8 sets, daily range): BP systolic 90–131; BP diastolic 41–56
[2021-08-20] MEDS: normal saline 1000ml 1,000 ML IV SCH ×2 (00:55→14:38)
--- NOTE | 2021-08-20 00:55 | NUR ---
HOSPITALIST CALLED ABOUT PATIENT CONTINUOUS DECREASE BP DESPITE IVF. ATTEMPTED TO REQUEST ORDER FOR MIDODRINE. SAY NO TO ORDERING MIDODRINE SINCE PATIENT HAS NOT BEEN ON MED BEFORE. HE WANTS US TO CONTINUE IVF ORDERED, CONTINUE MONITOR PATIENT AND CALL HIM IF THERE'S ANY CHANGE.
--- NOTE | 2021-08-20 03:00 | NUR ---
patient has continuous IV fluid to maintain BP. last BP 100/55. patient IV infitrated several unsuccessful attempts by several nurses. Patient needs new IV . Page sent out PICC line nurse. I will inform .
[2021-08-20] MEDS: ipratropium/albuterol 3ml nebule NEB SCH ×6 (03:02→23:32)
--- NOTE | 2021-08-20 05:35 | NUR ---
Patient resting in bed in no apparent distress. patient IV is not working. The charge nurse, another nurse and all unsuccessfully attempted to get an IV access. Patient clean and dry . linens changed. Instruct patient to call for help as needed. All safety measures in place. Will continue to monitor.
[2021-08-20] MEDS: K and/or MAG REPLACEMENT MC SCH ×2 (08:00→19:56)
[2021-08-20] MEDS: lisinopril 20mg tablet PO SCH (08:00)
[2021-08-20] MEDS: carVEDilol 3.125mg tablet PO SCH ×2 (08:00→19:22)
[2021-08-20 08:23] LABS: BASOPHILS % (AUTO) 0.1 % (0-1); EOSINOPHILS % (AUTO) 0.2 % (0-6); HEMATOCRIT 29.9 % (42.0-52.0); HEMOGLOBIN 9.8 g/dl (14.0-17.9); LYMPHOCYTES # (AUTO) 0.7 X10'3 (1.1-4.8); LYMPHOCYTES % (AUTO) 5.9 % (21-51); MEAN CORPUSCULAR HEMOGLOBIN 32.6 PG (27.0-31.0); MEAN CORPUSCULAR HGB CONC 32.9 g/dL (33.0-36.5); MEAN PLATELET VOLUME 10.9 FL (7.4-10.4); MONOCYTES # (AUTO) 0.8 X10'3 (0-0.9); MONOCYTES % (AUTO) 6.9 % (2-12); NEUTROPHILS # (AUTO) 10.6 X10'3 (1.8-7.7); NEUTROPHILS % (AUTO) 86.9 % (42-75); PLATELET COUNT 124 X10'3 (140-440); RED BLOOD COUNT 3.02 X10'6 (4.70-6.10); RED CELL DISTRIBUTION WIDTH 15.8 % (11.5-14.5); WHITE BLOOD COUNT 12.2 X10'3 (4.5-11.0)
[2021-08-20 08:25] LABS: D-DIMER 1.97 MG/L FEU (0-0.50)
[2021-08-20] MEDS: apixaban 5mg tablet PO SCH ×2 (08:45→19:22)
[2021-08-20] MEDS: lactose-reduced food (Ensure High Protein) 237ml bottle PO SCH ×3 (08:45→18:00)
[2021-08-20] MEDS: fenofibrate 145mg tablet PO SCH (08:45)
[2021-08-20] MEDS: docusate sod 100mg capsule PO SCH ×2 (08:45→19:21)
[2021-08-20 08:47] LABS: ALANINE AMINOTRANSFERASE 29 U/L (12-78); ALBUMIN/GLOBULIN RATIO 0.7 (1.1-1.5); ALKALINE PHOSPHATASE 54 IU/L (46-116); ANION GAP 1 (8-16); ASPARTATE AMINO TRANSFERASE 22 U/L (10-37); BILIRUBIN,TOTAL 0.3 MG/DL (0.1-1.0); BLOOD UREA NITROGEN 39 MG/DL (7-18); BUN/CREATININE RATIO 70.9 (5.4-32.0); C-REACTIVE PROTEIN 0.19 MG/DL (0.0-0.5); CALCIUM 7.8 MG/DL (8.5-10.1); CHLORIDE 101 MMOL/L (99-107); CREATININE 0.55 MG/DL (0.60-1.10); GLUCOSE 95 MG/DL (70-104); LACTATE DEHYDROGENASE 217 U/L (85-227); MAGNESIUM 1.4 MG/DL (1.5-2.4); PHOSPHORUS 2.5 MG/DL (2.3-4.5); POTASSIUM 5.3 MMOL/L (3.5-5.1); SODIUM 138 MMOL/L (135-145); TOTAL CARBON DIOXIDE 35.9 MMOL/L (24-32); TOTAL PROTEIN 4.9 G/DL (6.4-8.2); eGFR > 90 ML/MIN
[2021-08-20] MEDS: dexamethasone inj 4 MG in normal saline 50ml IV soln 50 ML IV SCH (09:20)
[2021-08-20] MEDS: HYDROcodone/acetaminophen 5mg/325mg tablet PO PRN (09:23)
--- NOTE | 2021-08-20 09:56 | NUR ---
Reassessment: Pt continues eating well and appears to be improving with mostly 75% PO intake since last RD assessment 08/16, up to 75-100% PO intake at two most recent meals. PO intake of Ensure High Protein TID slightly fluctuates with average 75%, up to 100% PO intake of three most recent ONS. Pt meeting estimated nutrient needs at this time with combined PO intake of meals and ONS. LBM 08/19, receiving routine bowel care. No further nutrition intervention warranted at this time. Will continue to follow. Recommendations: 1) Advance to regular diet 2) Continue Ensure High Protein TIDWM 3) Routine bowel care 4) Daily scaled weights per rx Addendum: 08/20/21 at [address] Amended: Links added.
[2021-08-20 10:31] LABS: HYPOCHROMASIA 1+; LARGE PLATELETS FEW; PLATELET ESTIMATE DECREASED
--- NOTE | 2021-08-20 15:18 | NUR ---
Paged Dr. Garcia PAGER ID: [phone] MESSAGE: PCU [id number] Darius Garcia, Mag level is 1.4. could you put in the Magnesium replacement set please. Alejandra CEE [phone]
[2021-08-20] MEDS ORDERED: potassium Cl 40MEQ/1/2NS 520ml 520 ML IV PRN (15:25)
[2021-08-20] MEDS ORDERED: potassium Cl 20 mEq SR tablet PO PRN ×2 (15:25)
[2021-08-20] MEDS ORDERED: magnesium 4gm in 100ml NS 100 ML IV PRN (15:25)
[2021-08-20] MEDS ORDERED: magnesium Cl slow-release 64mg tablet PO PRN (15:25)
[2021-08-20] MEDS ORDERED: sodium polystyrene sulfonate 15gm/60ml oral suspension PO ONE (15:35)
[2021-08-20 17:42] LABS: HEMATOCRIT 27.7 % (42.0-52.0); HEMOGLOBIN 9.1 g/dl (14.0-17.9); MEAN CORPUSCULAR HEMOGLOBIN 32.4 PG (27.0-31.0); MEAN CORPUSCULAR VOLUME 98.1 FL (78-98); MEAN PLATELET VOLUME 10.6 FL (7.4-10.4); PLATELET COUNT 131 X10'3 (140-440); RED BLOOD COUNT 2.82 X10'6 (4.70-6.10); RED CELL DISTRIBUTION WIDTH 15.9 % (11.5-14.5); WHITE BLOOD COUNT 11.3 X10'3 (4.5-11.0)
--- NOTE | 2021-08-20 18:22 | NUR ---
Problems reprioritized. Patient report given, questions answered & plan of care reviewed with Sonia CEE.
[2021-08-20 22:04] LABS: HEMATOCRIT 24.2 % (42.0-52.0); MEAN CORPUSCULAR HEMOGLOBIN 32.4 PG (27.0-31.0); MEAN CORPUSCULAR HGB CONC 32.9 g/dL (33.0-36.5); MEAN CORPUSCULAR VOLUME 98.5 FL (78-98); MEAN PLATELET VOLUME 10.8 FL (7.4-10.4); PLATELET COUNT 111 X10'3 (140-440); RED BLOOD COUNT 2.46 X10'6 (4.70-6.10); RED CELL DISTRIBUTION WIDTH 15.8 % (11.5-14.5); WHITE BLOOD COUNT 8.8 X10'3 (4.5-11.0)
[2021-08-21] VITALS (7 sets, daily range): BP systolic 108–128; BP diastolic 42–70
[2021-08-21 03:20] LABS: BASOPHILS % (AUTO) 0.2 % (0-1); EOSINOPHILS # (AUTO) 0.1 X10'3 (0-0.9); EOSINOPHILS % (AUTO) 0.6 % (0-6); HEMATOCRIT 25.3 % (42.0-52.0); HEMOGLOBIN 8.3 g/dl (14.0-17.9); LYMPHOCYTES # (AUTO) 0.8 X10'3 (1.1-4.8); LYMPHOCYTES % (AUTO) 7.7 % (21-51); MEAN CORPUSCULAR HEMOGLOBIN 32.5 PG (27.0-31.0); MEAN CORPUSCULAR HGB CONC 32.7 g/dL (33.0-36.5); MEAN CORPUSCULAR VOLUME 99.4 FL (78-98); MEAN PLATELET VOLUME 10.9 FL (7.4-10.4); MONOCYTES # (AUTO) 1.1 X10'3 (0-0.9); MONOCYTES % (AUTO) 10.7 % (2-12); NEUTROPHILS # (AUTO) 8.4 X10'3 (1.8-7.7); NEUTROPHILS % (AUTO) 80.8 % (42-75); PLATELET COUNT 115 X10'3 (140-440); RED BLOOD COUNT 2.55 X10'6 (4.70-6.10); RED CELL DISTRIBUTION WIDTH 16.2 % (11.5-14.5); WHITE BLOOD COUNT 10.4 X10'3 (4.5-11.0)
[2021-08-21] MEDS: normal saline 1000ml 1,000 ML IV SCH ×2 (03:35→16:44)
[2021-08-21 04:11] LABS: D-DIMER 1.79 MG/L FEU (0-0.50)
[2021-08-21] MEDS: ipratropium/albuterol 3ml nebule NEB SCH ×6 (04:14→23:59)
[2021-08-21 04:42] LABS: ALANINE AMINOTRANSFERASE 24 U/L (12-78); ALBUMIN 1.8 G/DL (3.4-5.0); ALBUMIN/GLOBULIN RATIO 0.6 (1.1-1.5); ALKALINE PHOSPHATASE 57 IU/L (46-116); ANION GAP 3 (8-16); ASPARTATE AMINO TRANSFERASE 27 U/L (10-37); BILIRUBIN,TOTAL 0.4 MG/DL (0.1-1.0); BLOOD UREA NITROGEN 35 MG/DL (7-18); BUN/CREATININE RATIO 64.8 (5.4-32.0); C-REACTIVE PROTEIN 0.18 MG/DL (0.0-0.5); CALCIUM 7.3 MG/DL (8.5-10.1); CHLORIDE 101 MMOL/L (99-107); CREATININE 0.54 MG/DL (0.60-1.10); GLUCOSE 81 MG/DL (70-104); LACTATE DEHYDROGENASE 216 U/L (85-227); PHOSPHORUS 2.5 MG/DL (2.3-4.5); POTASSIUM 4.3 MMOL/L (3.5-5.1); SODIUM 138 MMOL/L (135-145); TOTAL CARBON DIOXIDE 34.2 MMOL/L (24-32); TOTAL PROTEIN 4.6 G/DL (6.4-8.2); eGFR > 90 ML/MIN
--- NOTE | 2021-08-21 06:29 | NUR ---
Problems reprioritized. Patient report given, questions answered & plan of care reviewed with Reynaldo CEE.
[2021-08-21] MEDS: dexamethasone inj 4 MG in normal saline 50ml IV soln 50 ML IV SCH (07:39)
[2021-08-21] MEDS: apixaban 5mg tablet PO SCH ×2 (07:40→19:32)
[2021-08-21] MEDS: fenofibrate 145mg tablet PO SCH (07:40)
[2021-08-21] MEDS: docusate sod 100mg capsule PO SCH ×2 (07:40→19:32)
[2021-08-21] MEDS: carVEDilol 3.125mg tablet PO SCH ×2 (07:44→19:34)
[2021-08-21] MEDS: lisinopril 20mg tablet PO SCH (07:44)
[2021-08-21] MEDS: lactose-reduced food (Ensure High Protein) 237ml bottle PO SCH ×3 (07:44→18:00)
[2021-08-21] MEDS: K and/or MAG REPLACEMENT MC SCH ×2 (08:00→19:24)
[2021-08-21 13:26] LABS: HEMATOCRIT 31.2 % (42.0-52.0); HEMOGLOBIN 10.4 g/dl (14.0-17.9); MEAN CORPUSCULAR HEMOGLOBIN 32.8 PG (27.0-31.0); MEAN CORPUSCULAR HGB CONC 33.3 g/dL (33.0-36.5); MEAN CORPUSCULAR VOLUME 98.6 FL (78-98); MEAN PLATELET VOLUME 10.4 FL (7.4-10.4); PLATELET COUNT 126 X10'3 (140-440); RED BLOOD COUNT 3.16 X10'6 (4.70-6.10); RED CELL DISTRIBUTION WIDTH 16.3 % (11.5-14.5); WHITE BLOOD COUNT 9.6 X10'3 (4.5-11.0)
--- NOTE | 2021-08-21 18:38 | NUR ---
Problems reprioritized. Patient report given, questions answered & plan of care reviewed with Maureen RN.
[2021-08-22] VITALS (7 sets, daily range): BP systolic 74–120; BP diastolic 43–66
[2021-08-22] MEDS: HYDROcodone/acetaminophen 5mg/325mg tablet PO PRN ×2 (00:11→09:35)
[2021-08-22] MEDS: ipratropium/albuterol 3ml nebule NEB SCH ×6 (02:20→23:11)
[2021-08-22 06:11] LABS: D-DIMER 1.81 MG/L FEU (0-0.50)
--- NOTE | 2021-08-22 06:13 | NUR ---
Patient in room PCU 3013. I have received report from Ni RN and had the opportunity to ask questions and assume patient care. Pt alert to voice, supine in bed with HOB at 20 degrees per preference. breathing even non labored. CL within reach, sr x2, bll. mesh surrounding LUE extended IV removed due to uncomfortable for pt. discomfort immediately relieved. pt verbalizing needs, safety education completed. no s/x acute distress.
[2021-08-22 06:21] LABS: C-REACTIVE PROTEIN 1.57 MG/DL (0.0-0.5); LACTATE DEHYDROGENASE 262 U/L (85-227); MAGNESIUM 1.5 MG/DL (1.5-2.4); PHOSPHORUS 2.4 MG/DL (2.3-4.5)
--- NOTE | 2021-08-22 06:39 | NUR ---
Pt hypotensive. 75/43. Pt verbal, alert and oriented at baseline, palor at baseline. Pt states "oh ya, my blood pressure it goes up and down. i feel fine." Pt head lowered scantly due to dyspnea when laying flat. Unable to locate blood pressure cuff on telemetry unit, charge nurse notified. Med surg unit searched. no manual blood pressure cuff. Cuff located in ER.
--- NOTE | 2021-08-22 07:07 | NUR ---
Pt continue hypotensive with manual blood pressure cuff: 78/44; HR 64. Dr. Paul Carter. Addendum: 08/22/21 at 0712 by Nguyen Junior RN "RE: Darius Garcia 3013A: + hypotension. 78/44. Pt alert and oriented. historically: blood pressure labile. Please Advise -Nguyen #[id number]"
[2021-08-22] MEDS: K and/or MAG REPLACEMENT MC SCH ×2 (08:00→20:00)
[2021-08-22] MEDS: lactose-reduced food (Ensure High Protein) 237ml bottle PO SCH ×3 (08:00→18:08)
[2021-08-22] MEDS: carVEDilol 3.125mg tablet PO SCH ×2 (08:00→20:00)
[2021-08-22] MEDS: lisinopril 10 MG tablet PO SCH (08:00)
[2021-08-22] MEDS ORDERED: apixaban 5mg tablet PO SCH (08:00)
[2021-08-22] MEDS: fenofibrate 145mg tablet PO SCH (09:27)
[2021-08-22] MEDS: apixaban 5mg tablet PO SCH ×2 (09:27→21:19)
[2021-08-22] MEDS: docusate sod 100mg capsule PO SCH ×2 (09:27→21:20)
[2021-08-22] MEDS: normal saline 1000ml 1,000 ML IV SCH ×2 (09:31→21:21)
[2021-08-22] MEDS: dexamethasone inj 4 MG in normal saline 50ml IV soln 50 ML IV SCH (09:36)
[2021-08-22 12:42] LABS: ALANINE AMINOTRANSFERASE 23 U/L (12-78); ALBUMIN 1.7 G/DL (3.4-5.0); ALBUMIN/GLOBULIN RATIO 0.7 (1.1-1.5); ALKALINE PHOSPHATASE 47 IU/L (46-116); ANION GAP 1 (8-16); ASPARTATE AMINO TRANSFERASE 26 U/L (10-37); BILIRUBIN,TOTAL 0.4 MG/DL (0.1-1.0); BLOOD UREA NITROGEN 30 MG/DL (7-18); BUN/CREATININE RATIO 50.8 (5.4-32.0); CALCIUM 7.3 MG/DL (8.5-10.1); CHLORIDE 102 MMOL/L (99-107); CREATININE 0.59 MG/DL (0.60-1.10); GLUCOSE 79 MG/DL (70-104); POTASSIUM 3.9 MMOL/L (3.5-5.1); SODIUM 133 MMOL/L (135-145); TOTAL CARBON DIOXIDE 29.6 MMOL/L (24-32); TOTAL PROTEIN 4.3 G/DL (6.4-8.2); eGFR > 90 ML/MIN
--- NOTE | 2021-08-22 17:59 | NUR ---
Pt refused orthostatic VS throughout the day despite encouragement.
--- NOTE | 2021-08-22 18:21 | NUR ---
Problems reprioritized. Patient report given, questions answered & plan of care reviewed with Kenia CEE. I have reviewed and agree with all interventions, assessments performed and documented by Nella HOLGUIN. Student Medication Administration: For this medication-pass time frame, all medication were reviewed, dispensed, administered and documented per hospital policy by Nella HOLGUIN. Addendum: 08/22/21 at 1934 by Nguyen Junior RN Report given to Maureen CEE
[2021-08-23 02:00] VITALS: BP 105/53
[2021-08-23] MEDS: ipratropium/albuterol 3ml nebule NEB SCH ×6 (03:14→23:11)
--- NOTE | 2021-08-23 06:08 | NUR ---
Patient in room PCU 3013. I have received report from Ni RN and had the opportunity to ask questions and assume patient care. Pt semi fowlers in bed, alert to voice, no SOB, NC/7LPM/high flow 02. safety measures in place. no s/sx acute distress.
[2021-08-23 06:41] LABS: D-DIMER 1.99 MG/L FEU (0-0.50)
--- NOTE | 2021-08-23 06:51 | NUR ---
Pt requesting prn breathing tx. RT paged. and immediately responded. RT to give routine breathing tx.
[2021-08-23 06:54] LABS: ALBUMIN 1.8 G/DL (3.4-5.0); ANION GAP 1 (8-16); BILIRUBIN,TOTAL 0.4 MG/DL (0.1-1.0); BLOOD UREA NITROGEN 24 MG/DL (7-18); BUN/CREATININE RATIO 42.9 (5.4-32.0); C-REACTIVE PROTEIN 1.92 MG/DL (0.0-0.5); CALCIUM 7.5 MG/DL (8.5-10.1); CHLORIDE 105 MMOL/L (99-107); CREATININE 0.56 MG/DL (0.60-1.10); GLUCOSE 75 MG/DL (70-104); LACTATE DEHYDROGENASE 201 U/L (85-227); MAGNESIUM 1.5 MG/DL (1.5-2.4); PHOSPHORUS 2.4 MG/DL (2.3-4.5); POTASSIUM 4.4 MMOL/L (3.5-5.1); SODIUM 139 MMOL/L (135-145); TOTAL CARBON DIOXIDE 32.8 MMOL/L (24-32); TOTAL PROTEIN 4.7 G/DL (6.4-8.2); eGFR > 90 ML/MIN
[2021-08-23 06:55] LABS: ALANINE AMINOTRANSFERASE 21 U/L (12-78); ALBUMIN/GLOBULIN RATIO 0.6 (1.1-1.5); ALKALINE PHOSPHATASE 44 IU/L (46-116); ASPARTATE AMINO TRANSFERASE 25 U/L (10-37)
[2021-08-23 07:00] VITALS: BP 115/48
[2021-08-23 07:44] LABS: OCCULT BLOOD STOOL POSITIVE (Neg)
[2021-08-23] MEDS: fenofibrate 145mg tablet PO SCH (07:56)
[2021-08-23] MEDS: docusate sod 100mg capsule PO SCH (07:57)
[2021-08-23] MEDS: apixaban 5mg tablet PO SCH ×2 (07:57→20:40)
[2021-08-23] MEDS: dexamethasone inj 4 MG in normal saline 50ml IV soln 50 ML IV SCH (07:58)
[2021-08-23] MEDS: lactose-reduced food (Ensure High Protein) 237ml bottle PO SCH ×3 (07:59→20:44)
[2021-08-23] MEDS: carVEDilol 3.125mg tablet PO SCH ×2 (07:59→20:00)
--- NOTE | 2021-08-23 08:00 | NUR ---
pt refused orthostatic vitals.
[2021-08-23] MEDS: K and/or MAG REPLACEMENT MC SCH ×2 (08:07→20:00)
[2021-08-23 10:04] LABS: BASOPHILS % (AUTO) 0.2 % (0-1); EOSINOPHILS # (AUTO) 0.1 X10'3 (0-0.9); EOSINOPHILS % (AUTO) 0.9 % (0-6); HEMATOCRIT 26.1 % (42.0-52.0); HEMOGLOBIN 8.8 g/dl (14.0-17.9); LYMPHOCYTES # (AUTO) 0.9 X10'3 (1.1-4.8); LYMPHOCYTES % (AUTO) 9.6 % (21-51); MEAN CORPUSCULAR HGB CONC 33.6 g/dL (33.0-36.5); MEAN CORPUSCULAR VOLUME 98.4 FL (78-98); MEAN PLATELET VOLUME 10.6 FL (7.4-10.4); MONOCYTES % (AUTO) 10.8 % (2-12); NEUTROPHILS # (AUTO) 7.3 X10'3 (1.8-7.7); NEUTROPHILS % (AUTO) 78.5 % (42-75); PLATELET COUNT 116 X10'3 (140-440); RED BLOOD COUNT 2.66 X10'6 (4.70-6.10); RED CELL DISTRIBUTION WIDTH 16.6 % (11.5-14.5); WHITE BLOOD COUNT 9.3 X10'3 (4.5-11.0)
--- NOTE | 2021-08-23 10:21 | NUR ---
Dr. Miller to see pt Dr. miller requesting ABG be completed. RT paged. indicated to reduce DSS to prn.
[2021-08-23 10:28] LABS: ANISOCYTOSIS 1+; LARGE PLATELETS FEW; PLATELET ESTIMATE DECREASED
[2021-08-23] MEDS ORDERED: pantoprazole 40mg Tablet.DR PO ONE (10:35)
--- NOTE | 2021-08-23 10:57 | NUR ---
Pt requesting early breathing tx, giving now. Also informed pt about the abg that the dr has ordered. Pt states that those "hurt like hell." and states "I'm all pained out and dont want you doing that". Pt is awake and alert. Will speak with his RN Nguyen and kaity to monitor. Pt currently with spo2 of 92% on 7 lpm cannula
[2021-08-23] MEDS: HYDROcodone/acetaminophen 5mg/325mg tablet PO PRN ×2 (11:37→20:48)
--- NOTE | 2021-08-23 12:48 | NUR ---
Pt refused ABG: Paged Dr. Miller "RE: Radha Darius: [id number]: pt refused ABG. CBC completed H&H: -Nguyen #[id number]"
[2021-08-23] MEDS: lisinopril 10 MG tablet PO SCH (14:39)
--- NOTE | 2021-08-23 15:06 | NUR ---
Per verbal d/w RN patient requesting soft to chew foods d/t being edentulous however does not want chopped/ground food. RN updated diet order in EMR. Addendum: 08/23/21 at [address] Amended: Links added.
[2021-08-23] MEDS: ipratropium/albuterol 3ml nebule NEB PRN (16:19)
[2021-08-23] MEDS: normal saline 1000ml 1,000 ML IV SCH (17:21)
[2021-08-23 18:00] VITALS: BP 143/58
--- NOTE | 2021-08-23 19:00 | NUR ---
Problems reprioritized. Patient report given, questions answered & plan of care reviewed with Ni RN. pt content sitting up in bed watching [employer] eating his dinner. no s/sx acute distress.
[2021-08-23 20:00] VITALS: BP 99/51
[2021-08-23] MEDS: pantoprazole 40mg Tablet.DR PO SCH (20:41)
[2021-08-23 22:00] VITALS: BP 103/52
[2021-08-24] VITALS (7 sets, daily range): BP systolic 89–128; BP diastolic 37–62
[2021-08-24 06:40] LABS: ALANINE AMINOTRANSFERASE 17 U/L (12-78); ALBUMIN 1.8 G/DL (3.4-5.0); ALBUMIN/GLOBULIN RATIO 0.6 (1.1-1.5); ALKALINE PHOSPHATASE 44 IU/L (46-116); ANION GAP 1 (8-16); ASPARTATE AMINO TRANSFERASE 26 U/L (10-37); BILIRUBIN,TOTAL 0.4 MG/DL (0.1-1.0); BLOOD UREA NITROGEN 20 MG/DL (7-18); BUN/CREATININE RATIO 43.5 (5.4-32.0); CALCIUM 7.4 MG/DL (8.5-10.1); CHLORIDE 105 MMOL/L (99-107); CREATININE 0.46 MG/DL (0.60-1.10); GLUCOSE 79 MG/DL (70-104); POTASSIUM 4.1 MMOL/L (3.5-5.1); SODIUM 138 MMOL/L (135-145); TOTAL CARBON DIOXIDE 31.9 MMOL/L (24-32); TOTAL PROTEIN 4.9 G/DL (6.4-8.2); eGFR > 90 ML/MIN
[2021-08-24 06:41] LABS: BASOPHILS % (AUTO) 0.2 % (0-1); EOSINOPHILS # (AUTO) 0.1 X10'3 (0-0.9); EOSINOPHILS % (AUTO) 1.4 % (0-6); HEMATOCRIT 26.5 % (42.0-52.0); HEMOGLOBIN 8.9 g/dl (14.0-17.9); LYMPHOCYTES % (AUTO) 12.5 % (21-51); MEAN CORPUSCULAR HGB CONC 33.6 g/dL (33.0-36.5); MEAN CORPUSCULAR VOLUME 98.3 FL (78-98); MEAN PLATELET VOLUME 10.1 FL (7.4-10.4); MONOCYTES # (AUTO) 0.8 X10'3 (0-0.9); MONOCYTES % (AUTO) 9.7 % (2-12); NEUTROPHILS # (AUTO) 5.9 X10'3 (1.8-7.7); NEUTROPHILS % (AUTO) 76.2 % (42-75); PLATELET COUNT 116 X10'3 (140-440); RED BLOOD COUNT 2.69 X10'6 (4.70-6.10); RED CELL DISTRIBUTION WIDTH 16.7 % (11.5-14.5); WHITE BLOOD COUNT 7.8 X10'3 (4.5-11.0)
--- NOTE | 2021-08-24 06:51 | NUR ---
Patient in room PCU 3013. I have received report from Maureen RN and had the opportunity to ask questions and assume patient care.
[2021-08-24] MEDS: ipratropium/albuterol 3ml nebule NEB SCH ×5 (07:05→23:22)
[2021-08-24] MEDS: dexamethasone inj 4 MG in normal saline 50ml IV soln 50 ML IV SCH (07:29)
[2021-08-24] MEDS: apixaban 5mg tablet PO SCH ×2 (07:32→20:01)
[2021-08-24] MEDS: HYDROcodone/acetaminophen 5mg/325mg tablet PO PRN ×2 (07:32→17:52)
[2021-08-24] MEDS: fenofibrate 145mg tablet PO SCH (07:32)
[2021-08-24] MEDS: pantoprazole 40mg Tablet.DR PO SCH ×2 (07:32→20:01)
[2021-08-24] MEDS: lisinopril 10 MG tablet PO SCH (08:00)
[2021-08-24] MEDS: carVEDilol 3.125mg tablet PO SCH ×2 (08:00→20:00)
[2021-08-24] MEDS: K and/or MAG REPLACEMENT MC SCH ×2 (08:00→20:00)
[2021-08-24] MEDS: lactose-reduced food (Ensure High Protein) 237ml bottle PO SCH ×2 (08:00→20:05)
--- NOTE | 2021-08-24 10:30 | NUR ---
pt bp was decreased this AM 89/49 and PM 92/37. I held this AM BP meds lisinopril and Coreg. Dr Garcia was paged about pt, pt is having no symptoms and says he feels fine. Just some SOB which has been the normal for him. Will continue to monitor.
[2021-08-24] MEDS: normal saline 1000ml 1,000 ML IV SCH (12:25)
--- NOTE | 2021-08-24 12:27 | NUR ---
Page Sent PAGER ID: [phone] MESSAGE: [id number] Radha, pt BP was 92/37 @ 1100 but no symptoms and states he feels fine. His BP this morning was low as well and I held his BP medications. thanks thom [phone]
--- NOTE | 2021-08-24 12:34 | NUR ---
pt refused to let me take his ortho static vitals and a daily weight on him.
--- NOTE | 2021-08-24 18:18 | NUR ---
Problems reprioritized. Patient report given, questions answered & plan of care reviewed with Mitra CEE.
[2021-08-25] VITALS (9 sets, daily range): BP systolic 0–105; BP diastolic 39–68
[2021-08-25] MEDS: ipratropium/albuterol 3ml nebule NEB SCH ×6 (03:04→23:27)
--- NOTE | 2021-08-25 06:42 | NUR ---
Problems reprioritized. Patient report given, questions answered & plan of care reviewed with Shewit.
[2021-08-25] MEDS: K and/or MAG REPLACEMENT MC SCH ×2 (08:00→20:00)
[2021-08-25] MEDS: carVEDilol 3.125mg tablet PO SCH ×2 (08:00→20:00)
[2021-08-25] MEDS: lisinopril 10 MG tablet PO SCH (08:00)
[2021-08-25] MEDS: HYDROcodone/acetaminophen 5mg/325mg tablet PO PRN ×3 (08:53→20:37)
[2021-08-25] MEDS: fenofibrate 145mg tablet PO SCH (08:54)
[2021-08-25] MEDS: apixaban 5mg tablet PO SCH ×2 (08:54→20:34)
[2021-08-25] MEDS: pantoprazole 40mg Tablet.DR PO SCH ×2 (08:54→20:34)
[2021-08-25] MEDS: lactose-reduced food (Ensure High Protein) 237ml bottle PO SCH ×2 (08:55→20:00)
[2021-08-25] MEDS: dexamethasone inj 4 MG in normal saline 50ml IV soln 50 ML IV SCH (08:55)
[2021-08-25 14:23] LABS: BASOPHILS % (AUTO) 0.1 % (0-1); EOSINOPHILS % (AUTO) 0.2 % (0-6); HEMATOCRIT 25.6 % (42.0-52.0); HEMOGLOBIN 8.5 g/dl (14.0-17.9); LYMPHOCYTES # (AUTO) 0.4 X10'3 (1.1-4.8); LYMPHOCYTES % (AUTO) 4.8 % (21-51); MEAN CORPUSCULAR HEMOGLOBIN 33.2 PG (27.0-31.0); MEAN CORPUSCULAR HGB CONC 33.3 g/dL (33.0-36.5); MEAN CORPUSCULAR VOLUME 99.6 FL (78-98); MONOCYTES # (AUTO) 0.2 X10'3 (0-0.9); MONOCYTES % (AUTO) 2.2 % (2-12); NEUTROPHILS # (AUTO) 7.1 X10'3 (1.8-7.7); NEUTROPHILS % (AUTO) 92.7 % (42-75); PLATELET COUNT 118 X10'3 (140-440); RED BLOOD COUNT 2.57 X10'6 (4.70-6.10); RED CELL DISTRIBUTION WIDTH 16.5 % (11.5-14.5); WHITE BLOOD COUNT 7.6 X10'3 (4.5-11.0)
[2021-08-25 14:34] LABS: ALANINE AMINOTRANSFERASE 18 U/L (12-78); ALBUMIN 1.8 G/DL (3.4-5.0); ALBUMIN/GLOBULIN RATIO 0.6 (1.1-1.5); ALKALINE PHOSPHATASE 52 IU/L (46-116); ANION GAP 2 (8-16); ASPARTATE AMINO TRANSFERASE 26 U/L (10-37); BILIRUBIN,TOTAL 0.3 MG/DL (0.1-1.0); BLOOD UREA NITROGEN 22 MG/DL (7-18); BUN/CREATININE RATIO 33.3 (5.4-32.0); CALCIUM 7.1 MG/DL (8.5-10.1); CHLORIDE 104 MMOL/L (99-107); CREATININE 0.66 MG/DL (0.60-1.10); GLUCOSE 140 MG/DL (70-104); POTASSIUM 4.4 MMOL/L (3.5-5.1); SODIUM 136 MMOL/L (135-145); TOTAL CARBON DIOXIDE 30.2 MMOL/L (24-32); eGFR > 90 ML/MIN
--- NOTE | 2021-08-25 18:40 | NUR ---
Patient in room PCU 3013A. I have received report from Jacquelyn and had the opportunity to ask questions and assume patient care.
[2021-08-26] MEDS: ipratropium/albuterol 3ml nebule NEB SCH ×6 (03:33→23:32)
[2021-08-26 05:46] LABS: BASOPHILS % (AUTO) 0.3 % (0-1); EOSINOPHILS # (AUTO) 0.1 X10'3 (0-0.9); EOSINOPHILS % (AUTO) 1.3 % (0-6); HEMATOCRIT 25.4 % (42.0-52.0); HEMOGLOBIN 8.5 g/dl (14.0-17.9); LYMPHOCYTES % (AUTO) 10.9 % (21-51); MEAN CORPUSCULAR HEMOGLOBIN 33.1 PG (27.0-31.0); MEAN CORPUSCULAR HGB CONC 33.6 g/dL (33.0-36.5); MEAN CORPUSCULAR VOLUME 98.4 FL (78-98); MEAN PLATELET VOLUME 10.1 FL (7.4-10.4); MONOCYTES # (AUTO) 0.6 X10'3 (0-0.9); MONOCYTES % (AUTO) 6.7 % (2-12); NEUTROPHILS # (AUTO) 7.2 X10'3 (1.8-7.7); NEUTROPHILS % (AUTO) 80.8 % (42-75); PLATELET COUNT 112 X10'3 (140-440); RED BLOOD COUNT 2.58 X10'6 (4.70-6.10); RED CELL DISTRIBUTION WIDTH 16.7 % (11.5-14.5); WHITE BLOOD COUNT 8.9 X10'3 (4.5-11.0)
[2021-08-26 05:59] LABS: ALANINE AMINOTRANSFERASE 18 U/L (12-78); ALBUMIN 1.9 G/DL (3.4-5.0); ALBUMIN/GLOBULIN RATIO 0.6 (1.1-1.5); ALKALINE PHOSPHATASE 53 IU/L (46-116); ANION GAP -1 (8-16); ASPARTATE AMINO TRANSFERASE 23 U/L (10-37); BILIRUBIN,TOTAL 0.4 MG/DL (0.1-1.0); BLOOD UREA NITROGEN 18 MG/DL (7-18); BUN/CREATININE RATIO 32.1 (5.4-32.0); CALCIUM 7.7 MG/DL (8.5-10.1); CHLORIDE 104 MMOL/L (99-107); CREATININE 0.56 MG/DL (0.60-1.10); GLUCOSE 79 MG/DL (70-104); POTASSIUM 4.2 MMOL/L (3.5-5.1); SODIUM 136 MMOL/L (135-145); TOTAL CARBON DIOXIDE 32.6 MMOL/L (24-32); TOTAL PROTEIN 4.9 G/DL (6.4-8.2); eGFR > 90 ML/MIN
[2021-08-26 06:00] VITALS: BP 99/54
--- NOTE | 2021-08-26 06:37 | NUR ---
Problems reprioritized. Patient report given, questions answered & plan of care reviewed with Shewit.
--- NOTE | 2021-08-26 07:01 | NUR ---
Student documentation: I have reviewed and agree with all interventions, assessments performed and documented by Disha HOLGUIN. Student Medication Administration: For this medication-pass time frame, all medication were reviewed, dispensed, administered and documented per hospital policy by Disha HOLGUIN.
[2021-08-26] MEDS: pantoprazole 40mg Tablet.DR PO SCH ×2 (07:49→20:59)
[2021-08-26] MEDS: apixaban 5mg tablet PO SCH ×2 (07:49→20:59)
[2021-08-26] MEDS: fenofibrate 145mg tablet PO SCH (07:49)
[2021-08-26 08:00] VITALS: BP_SYST 95; BP_SYST 99; BP_DIAS 52; BP_DIAS 56
[2021-08-26] MEDS: lisinopril 10 MG tablet PO SCH (08:00)
[2021-08-26] MEDS ORDERED: NORMAL SALINE IV SCH (08:00)
[2021-08-26] MEDS: carVEDilol 3.125mg tablet PO SCH ×2 (08:00→21:00)
[2021-08-26] MEDS: lactose-reduced food (Ensure High Protein) 237ml bottle PO SCH ×2 (08:00→20:00)
[2021-08-26] MEDS ORDERED: DEXAMETHASONE IV SCH (08:00)
[2021-08-26] MEDS: K and/or MAG REPLACEMENT MC SCH ×2 (08:00→20:00)
[2021-08-26 11:00] VITALS: BP 102/52
--- NOTE | 2021-08-26 12:03 | NUR ---
Reassessment: Pt continues w/ adequate intake on EC7/Heart Healthy diet, avg 70% x 12 meals and 89% x 9 ONS meeting needs. LBM 08/24. No new nutrition intervention implemented at this time, will continue to monitor. Recommendations: 1) Advance to regular diet; continue EC7 per pt request 2) Continue Ensure High Protein TIDWM 3) Routine bowel care 4) Daily scaled weights per rx Addendum: 08/26/21 at [address] Amended: Links added.
[2021-08-26] MEDS: HYDROcodone/acetaminophen 5mg/325mg tablet PO PRN ×2 (13:24→18:42)
[2021-08-26 15:00] VITALS: BP 106/54
[2021-08-26 18:00] VITALS: BP 99/48
--- NOTE | 2021-08-26 18:22 | NUR ---
Patient in room PCU 3013A. I have received report from Jacquelyn and had the opportunity to ask questions and assume patient care.
[2021-08-26 20:00] VITALS: BP_SYST 92; BP_SYST 98; BP_DIAS 55; BP_DIAS 56
[2021-08-27] MEDS: ipratropium/albuterol 3ml nebule NEB SCH ×5 (04:14→23:27)
[2021-08-27 06:00] VITALS: BP 114/75
--- NOTE | 2021-08-27 06:16 | NUR ---
Problems reprioritized. Patient report given, questions answered & plan of care reviewed with Sarabjit.
[2021-08-27 06:20] LABS: BASOPHILS % (AUTO) 0.2 % (0-1); EOSINOPHILS # (AUTO) 0.1 X10'3 (0-0.9); EOSINOPHILS % (AUTO) 1.4 % (0-6); HEMATOCRIT 25.9 % (42.0-52.0); HEMOGLOBIN 8.7 g/dl (14.0-17.9); LYMPHOCYTES # (AUTO) 1.1 X10'3 (1.1-4.8); MEAN CORPUSCULAR HEMOGLOBIN 32.9 PG (27.0-31.0); MEAN CORPUSCULAR HGB CONC 33.7 g/dL (33.0-36.5); MEAN CORPUSCULAR VOLUME 97.6 FL (78-98); MONOCYTES # (AUTO) 0.4 X10'3 (0-0.9); MONOCYTES % (AUTO) 5.1 % (2-12); NEUTROPHILS # (AUTO) 6.6 X10'3 (1.8-7.7); NEUTROPHILS % (AUTO) 80.3 % (42-75); PLATELET COUNT 98 X10'3 (140-440); RED BLOOD COUNT 2.65 X10'6 (4.70-6.10); RED CELL DISTRIBUTION WIDTH 17.8 % (11.5-14.5); WHITE BLOOD COUNT 8.2 X10'3 (4.5-11.0)
[2021-08-27 06:38] LABS: ALANINE AMINOTRANSFERASE 18 U/L (12-78); ALBUMIN 1.8 G/DL (3.4-5.0); ALBUMIN/GLOBULIN RATIO 0.6 (1.1-1.5); ALKALINE PHOSPHATASE 52 IU/L (46-116); ANION GAP 1 (8-16); ASPARTATE AMINO TRANSFERASE 29 U/L (10-37); BILIRUBIN,TOTAL 0.3 MG/DL (0.1-1.0); BLOOD UREA NITROGEN 19 MG/DL (7-18); BUN/CREATININE RATIO 32.2 (5.4-32.0); C-REACTIVE PROTEIN 2.96 MG/DL (0.0-0.5); CALCIUM 7.8 MG/DL (8.5-10.1); CHLORIDE 104 MMOL/L (99-107); CREATININE 0.59 MG/DL (0.60-1.10); GLUCOSE 86 MG/DL (70-104); MAGNESIUM 1.5 MG/DL (1.5-2.4); PHOSPHORUS 2.5 MG/DL (2.3-4.5); POTASSIUM 4.2 MMOL/L (3.5-5.1); SODIUM 136 MMOL/L (135-145); TOTAL CARBON DIOXIDE 30.6 MMOL/L (24-32); eGFR > 90 ML/MIN
--- NOTE | 2021-08-27 07:34 | NUR ---
Patient in room PCU 3013. I have received report from Nona CEE and had the opportunity to ask questions and assume patient care.
[2021-08-27] MEDS: lactose-reduced food (Ensure High Protein) 237ml bottle PO SCH ×2 (08:00→20:00)
[2021-08-27] MEDS: K and/or MAG REPLACEMENT MC SCH ×2 (08:00→20:00)
[2021-08-27] MEDS: pantoprazole 40mg Tablet.DR PO SCH ×2 (09:29→19:48)
[2021-08-27] MEDS: apixaban 5mg tablet PO SCH ×2 (09:30→19:48)
[2021-08-27] MEDS: lisinopril 10 MG tablet PO SCH (09:30)
[2021-08-27] MEDS: fenofibrate 145mg tablet PO SCH (09:30)
[2021-08-27] MEDS: carVEDilol 3.125mg tablet PO SCH ×2 (09:30→19:53)
[2021-08-27] MEDS: HYDROcodone/acetaminophen 5mg/325mg tablet PO PRN ×2 (09:30→18:22)
[2021-08-27 11:00] VITALS: BP 142/68
[2021-08-27 15:00] VITALS: BP 116/47
[2021-08-27 18:00] VITALS: BP 140/52
--- NOTE | 2021-08-27 18:16 | NUR ---
Problems reprioritized. Patient report given, questions answered & plan of care reviewed with Nona CEE. Patient stable at transfer of care.
[2021-08-27 20:00] VITALS: BP_SYST 92; BP_SYST 95; BP_DIAS 50; BP_DIAS 54
[2021-08-27 22:00] VITALS: BP 124/51
[2021-08-28] VITALS (8 sets, daily range): BP systolic 99–157; BP diastolic 42–89
[2021-08-28] MEDS: ipratropium/albuterol 3ml nebule NEB SCH ×6 (03:49→23:18)
[2021-08-28 05:40] LABS: BASOPHILS % (AUTO) 0.3 % (0-1); EOSINOPHILS # (AUTO) 0.2 X10'3 (0-0.9); EOSINOPHILS % (AUTO) 1.4 % (0-6); HEMATOCRIT 28.6 % (42.0-52.0); HEMOGLOBIN 9.4 g/dl (14.0-17.9); LYMPHOCYTES # (AUTO) 1.6 X10'3 (1.1-4.8); LYMPHOCYTES % (AUTO) 13.9 % (21-51); MEAN CORPUSCULAR HEMOGLOBIN 32.5 PG (27.0-31.0); MEAN CORPUSCULAR HGB CONC 32.8 g/dL (33.0-36.5); MEAN CORPUSCULAR VOLUME 99.4 FL (78-98); MEAN PLATELET VOLUME 9.6 FL (7.4-10.4); MONOCYTES # (AUTO) 0.6 X10'3 (0-0.9); MONOCYTES % (AUTO) 5.5 % (2-12); NEUTROPHILS # (AUTO) 8.8 X10'3 (1.8-7.7); NEUTROPHILS % (AUTO) 78.9 % (42-75); PLATELET COUNT 106 X10'3 (140-440); RED BLOOD COUNT 2.88 X10'6 (4.70-6.10); RED CELL DISTRIBUTION WIDTH 17.7 % (11.5-14.5); WHITE BLOOD COUNT 11.2 X10'3 (4.5-11.0)
[2021-08-28 06:00] LABS: ALANINE AMINOTRANSFERASE 19 U/L (12-78); ALBUMIN 1.9 G/DL (3.4-5.0); ALBUMIN/GLOBULIN RATIO 0.5 (1.1-1.5); ALKALINE PHOSPHATASE 51 IU/L (46-116); ANION GAP 5 (8-16); ASPARTATE AMINO TRANSFERASE 34 U/L (10-37); BILIRUBIN,TOTAL 0.5 MG/DL (0.1-1.0); BLOOD UREA NITROGEN 22 MG/DL (7-18); BUN/CREATININE RATIO 42.3 (5.4-32.0); C-REACTIVE PROTEIN 5.55 MG/DL (0.0-0.5); CALCIUM 7.8 MG/DL (8.5-10.1); CHLORIDE 102 MMOL/L (99-107); CREATININE 0.52 MG/DL (0.60-1.10); GLUCOSE 88 MG/DL (70-104); MAGNESIUM 1.4 MG/DL (1.5-2.4); PHOSPHORUS 2.5 MG/DL (2.3-4.5); POTASSIUM 4.3 MMOL/L (3.5-5.1); SODIUM 137 MMOL/L (135-145); TOTAL CARBON DIOXIDE 30.2 MMOL/L (24-32); TOTAL PROTEIN 5.4 G/DL (6.4-8.2); eGFR > 90 ML/MIN
--- NOTE | 2021-08-28 06:41 | NUR ---
Patient in room PCU 3013. I have received report from Nona CEE and had the opportunity to ask questions and assume patient care. Pt semi fowlers in bed, alert to voice, -9LPM, weak cough noted, no sputum at this time. deep breathing adn pulmonary education completed. Warm blanket given, pt repositioned to protect skin integrity. skin integrity protection/safety education completed. safety measures maintained. no s/sx acute distress
--- NOTE | 2021-08-28 06:51 | NUR ---
Problems reprioritized. Patient report given, questions answered & plan of care reviewed with Nguyen.
[2021-08-28] MEDS: K and/or MAG REPLACEMENT MC SCH ×2 (08:00→20:00)
[2021-08-28] MEDS: fenofibrate 145mg tablet PO SCH (08:37)
[2021-08-28] MEDS: pantoprazole 40mg Tablet.DR PO SCH ×2 (08:37→20:35)
[2021-08-28] MEDS: carVEDilol 3.125mg tablet PO SCH ×2 (08:37→20:35)
[2021-08-28] MEDS: lactose-reduced food (Ensure High Protein) 237ml bottle PO SCH ×2 (08:38→20:00)
[2021-08-28] MEDS: lisinopril 10 MG tablet PO SCH (08:38)
[2021-08-28] MEDS: apixaban 5mg tablet PO SCH ×2 (08:38→20:35)
[2021-08-28] MEDS ORDERED: magnesium 4gm in 100ml NS 100 ML IV PRN (08:45)
[2021-08-28] MEDS ORDERED: potassium Cl 20 mEq SR tablet PO PRN ×2 (08:45)
[2021-08-28] MEDS ORDERED: magnesium Cl slow-release 64mg tablet PO PRN (08:45)
[2021-08-28] MEDS ORDERED: potassium Cl 40MEQ/1/2NS 520ml 520 ML IV PRN (08:45)
[2021-08-28] MEDS: HYDROcodone/acetaminophen 5mg/325mg tablet PO PRN ×2 (09:08→14:37)
--- NOTE | 2021-08-28 18:30 | NUR ---
Problems reprioritized. Patient report given, questions answered & plan of care reviewed with Robbie CEE. Pt semi fowlers in bed, HF nasal cannula at 10 LPM. no s/sx acute distress
[2021-08-29] VITALS (7 sets, daily range): BP systolic 99–139; BP diastolic 48–63
[2021-08-29] MEDS: ipratropium/albuterol 3ml nebule NEB SCH ×6 (02:53→23:01)
[2021-08-29] MEDS: HYDROcodone/acetaminophen 5mg/325mg tablet PO PRN ×4 (05:32→17:56)
[2021-08-29] MEDS: fenofibrate 145mg tablet PO SCH (07:31)
[2021-08-29] MEDS: apixaban 5mg tablet PO SCH ×2 (07:31→19:26)
[2021-08-29] MEDS: carVEDilol 3.125mg tablet PO SCH ×2 (07:31→19:26)
[2021-08-29] MEDS: pantoprazole 40mg Tablet.DR PO SCH ×2 (07:32→19:26)
[2021-08-29] MEDS: lisinopril 10 MG tablet PO SCH (07:32)
[2021-08-29 07:40] LABS: BASOPHILS % (AUTO) 0.3 % (0-1); EOSINOPHILS # (AUTO) 0.1 X10'3 (0-0.9); EOSINOPHILS % (AUTO) 1.6 % (0-6); HEMATOCRIT 26.2 % (42.0-52.0); HEMOGLOBIN 8.6 g/dl (14.0-17.9); LYMPHOCYTES # (AUTO) 1.6 X10'3 (1.1-4.8); LYMPHOCYTES % (AUTO) 18.3 % (21-51); MEAN CORPUSCULAR HEMOGLOBIN 32.9 PG (27.0-31.0); MEAN CORPUSCULAR HGB CONC 32.9 g/dL (33.0-36.5); MEAN CORPUSCULAR VOLUME 100.1 FL (78-98); MEAN PLATELET VOLUME 9.9 FL (7.4-10.4); MONOCYTES # (AUTO) 0.5 X10'3 (0-0.9); MONOCYTES % (AUTO) 5.7 % (2-12); NEUTROPHILS # (AUTO) 6.4 X10'3 (1.8-7.7); NEUTROPHILS % (AUTO) 74.1 % (42-75); PLATELET COUNT 79 X10'3 (140-440); RED BLOOD COUNT 2.62 X10'6 (4.70-6.10); RED CELL DISTRIBUTION WIDTH 17.7 % (11.5-14.5); WHITE BLOOD COUNT 8.6 X10'3 (4.5-11.0)
[2021-08-29 07:58] LABS: ALANINE AMINOTRANSFERASE 15 U/L (12-78); ALBUMIN 1.7 G/DL (3.4-5.0); ALBUMIN/GLOBULIN RATIO 0.5 (1.1-1.5); ALKALINE PHOSPHATASE 49 IU/L (46-116); ANION GAP 1 (8-16); ASPARTATE AMINO TRANSFERASE 31 U/L (10-37); BILIRUBIN,TOTAL 0.4 MG/DL (0.1-1.0); BLOOD UREA NITROGEN 25 MG/DL (7-18); BUN/CREATININE RATIO 45.5 (5.4-32.0); C-REACTIVE PROTEIN 5.64 MG/DL (0.0-0.5); CALCIUM 7.6 MG/DL (8.5-10.1); CHLORIDE 101 MMOL/L (99-107); CREATININE 0.55 MG/DL (0.60-1.10); GLUCOSE 95 MG/DL (70-104); MAGNESIUM 1.5 MG/DL (1.5-2.4); PHOSPHORUS 2.7 MG/DL (2.3-4.5); POTASSIUM 4.3 MMOL/L (3.5-5.1); SODIUM 134 MMOL/L (135-145); TOTAL CARBON DIOXIDE 32.2 MMOL/L (24-32); TOTAL PROTEIN 4.9 G/DL (6.4-8.2); eGFR > 90 ML/MIN
[2021-08-29] MEDS: lactose-reduced food (Ensure High Protein) 237ml bottle PO SCH ×2 (08:00→19:24)
--- NOTE | 2021-08-29 08:00 | NUR ---
Patient refusing orthostatic BPs
[2021-08-29] MEDS: K and/or MAG REPLACEMENT MC SCH ×2 (08:19→19:22)
--- NOTE | 2021-08-29 13:24 | NUR ---
PAGER ID: [phone] MESSAGE: [phone] Darius Garcia: patient having a very depressed affect and has verbalized: "He wants to give up" "He doesnt care anymore" "Hes done"
[2021-08-30] VITALS (7 sets, daily range): BP systolic 86–98; BP diastolic 47–55
[2021-08-30] MEDS: HYDROcodone/acetaminophen 5mg/325mg tablet PO PRN ×4 (01:49→21:22)
[2021-08-30] MEDS: ipratropium/albuterol 3ml nebule NEB SCH ×6 (03:13→23:39)
--- NOTE | 2021-08-30 03:26 | NUR ---
reviewed and edited SRN assessment
--- NOTE | 2021-08-30 06:31 | NUR ---
Problems reprioritized. Patient report given, questions answered & plan of care reviewed with JAYE Crooks.
[2021-08-30] MEDS: lisinopril 10 MG tablet PO SCH (08:00)
[2021-08-30] MEDS: K and/or MAG REPLACEMENT MC SCH ×2 (08:00→18:35)
[2021-08-30] MEDS: carVEDilol 3.125mg tablet PO SCH ×2 (08:31→20:00)
[2021-08-30] MEDS: fenofibrate 145mg tablet PO SCH ×2 (08:31→21:21)
[2021-08-30] MEDS: apixaban 5mg tablet PO SCH ×2 (08:31→21:22)
[2021-08-30] MEDS: pantoprazole 40mg Tablet.DR PO SCH ×2 (08:32→21:21)
[2021-08-30] MEDS: lactose-reduced food (Ensure High Protein) 237ml bottle PO SCH ×2 (08:33→20:00)
--- NOTE | 2021-08-30 18:24 | NUR ---
Problems reprioritized. Patient report given, questions answered & plan of care reviewed with Marleni CEE.
--- NOTE | 2021-08-30 18:25 | NUR ---
PAGE SENT OUT TO REGISTERED RESPIRATORY THERAPIST FOR PATIENT DARIEL LYON FOR BREATHING TX.
--- NOTE | 2021-08-30 18:54 | NUR ---
SECOND PAGE SENT OUT TO [employer]GERS AND ACQUISITIONS ATTORNEY. PLEASE TX NEEDED FOR [id number]. PATIENT STATES HE HAS NOT HIS BREATHING TX.PATIENT REPOSITIONED IN BED. SUPPLEMENTAL O2 A@10L. PATIENT STILL COMPLAINTS OF SOB. SAT 80% TX NEEDED PRIYANK! THANKS
--- NOTE | 2021-08-30 22:27 | NUR ---
REPORT GIVEN TO JAYE GUAN. CHARGE NURSE MADE AWARE. IV REMOVED. ALL SAFETY IN PLACE. WILL CONTINUE MONITOR. JUST CALLED TO INQUIRE ABOUT PATIENT TRANSFER. INFORMED THAT I CALLED FACILITY AND I HAVE GIVEN REPORT TO JAYE GUAN.
--- NOTE | 2021-08-31 00:33 | NUR ---
per tank charger transportation will grain picker patient around 0100
--- NOTE | 2021-08-31 02:23 | NUR ---
Patient being picked up by Glenda from [facility].
--- NOTE | 2021-08-31 02:35 | NUR ---
Patient incontinent of bowel was changed.Monisha care performed. All linen were changed. He has clean gown. patient transported to [facility]. Patient stable. VS 96/60, sat 94 on 9L high flow.
== END 2021-08-31 02:10 | DRG 177 ==
LOC: ER 17:56 → ED HOLD 21:43 → PCU 3S 08-12 15:25
PROVIDERS: ADMIT Internal Medicine; ATTEND Family Medicine
PROC: B32T1ZZ Computerized Tomography (CT Scan) of Left Pulmonary Artery using Low Osmolar Contrast (ICD-10-PCS; 2021-08-11)
PROC: B3201ZZ Computerized Tomography (CT Scan) of Thoracic Aorta using Low Osmolar Contrast (ICD-10-PCS; 2021-08-11)
PROC: B32S1ZZ Computerized Tomography (CT Scan) of Right Pulmonary Artery using Low Osmolar Contrast (ICD-10-PCS; 2021-08-11)
PROC: 5A0945A Assistance with Respiratory Ventilation, 24-96 Consecutive Hours, High Flow/Velocity Cannula (ICD-10-PCS; principal; 2021-08-13)
PROC: 5A0935A Assistance with Respiratory Ventilation, Less than 24 Consecutive Hours, High Flow/Velocity Cannula (ICD-10-PCS; 2021-08-15)
PROC: 3E02340 Introduction of Influenza Vaccine into Muscle, Percutaneous Approach (ICD-10-PCS; 2021-08-16)
PROC: 5A0955A Assistance with Respiratory Ventilation, Greater than 96 Consecutive Hours, High Flow/Velocity Cannula (ICD-10-PCS; 2021-08-18)
DX: U07.1 COVID-19 (principal); J12.82 Pneumonia due to coronavirus disease 2019; J96.01 Acute respiratory failure with hypoxia; I50.23 Acute on chronic systolic (congestive) heart failure; J44.0 Chronic obstructive pulmonary disease with (acute) lower respiratory infection; I82.531 Chronic embolism and thrombosis of right popliteal vein; I82.431 Acute embolism and thrombosis of right popliteal vein; J44.1 Chronic obstructive pulmonary disease with (acute) exacerbation; R74.01 Elevation of levels of liver transaminase levels; E87.5 Hyperkalemia; D64.9 Anemia, unspecified; E78.5 Hyperlipidemia, unspecified; F17.210 Nicotine dependence, cigarettes, uncomplicated; R68.2 Dry mouth, unspecified; I11.0 Hypertensive heart disease with heart failure; Z79.01 Long term (current) use of anticoagulants; Z23 Encounter for immunization; Z88.5 Allergy status to narcotic agent; Z90.49 Acquired absence of other specified parts of digestive tract; I95.9 Hypotension, unspecified; Z71.6 Tobacco abuse counseling
CPT/HCPCS: 36415; 36600; 71045; 71275; 76700; 76937; 80053; 82272; 82803; 82948; 83605; 83615; 83735; 83880; 84100; 84145; 84443; 85007; 85008; 85018; 85025; 85027; 85379; 86140; 86703; 86705; 86706; 86709; 86803; 87040; 87340; 93005; 93306; 93970; 94640; 94667; 94668; 94760; 94799; 97110; 97161; 97530; 97535; 99291; G0378; J1100; J1650; J1940; J3475; J7030; J7040; J7050